=== PATIENT | female | born 1950 | race Caucasian/White ===

== ENCOUNTER 2021-08-10 11:49 | Inpatient (IN) | payer MEDICARE, OTHER ==
[~2021-08-10] VITALS: Ht 160 cm; Wt 72.5 kg
[2021-08-10] MEDS ORDERED: AMIT50TA PO (12:06)
[2021-08-10] MEDS ORDERED: MAG HYDROX/AL HYDROX/SIMETH 30 ML ORAL.SUSP PO PRN (12:45)
[2021-08-10] MEDS ORDERED: MAGNESIUM HYDROXIDE 2,400 MG/30 ML ORAL.SUSP. PO PRN (12:45)
[2021-08-10] MEDS ORDERED: METHYL SALICYLATE/MENTHOL TOPICAL OINTMENT 57GM TUBE. TP PRN (12:45)
[2021-08-10 13:17] LABS: BASO # 0.1 x10^3/uL (0.0-0.2); BASO % 1 % (0-3); EOS # 0.7 x10^3/uL (0.0-0.7); EOS % 6 % (0-3); HEMATOCRIT 36.9 % (36.0-47.0); HEMOGLOBIN 11.8 g/dL (12.0-15.5); LYMPH # 2.3 x10^3/uL (1.0-4.8); LYMPH % 22 % (24-48); MEAN CORPUSCULAR HEMOGLOBIN 30 pg (25-35); MEAN CORPUSCULAR HGB CONC 32 g/dL (31-37); MEAN CORPUSCULAR VOLUME 93 fL (79-100); MONO # 1.6 x10^3/uL (0.0-1.1); MONO % 16 % (0-9); NEUT # 5.8 x10^3uL (1.8-7.7); NEUT % 56 % (31-73); PLATELET COUNT 264 x10^3/uL (140-400); RED BLOOD COUNT 3.98 x10^6/uL (3.50-5.40); RED CELL DISTRIBUTION WIDTH 18.2 % (11.5-14.5); WHITE BLOOD COUNT 10.4 x10^3/uL (4.0-11.0)
[2021-08-10 13:20] VITALS: BP 113/66
[2021-08-10] MEDS ORDERED: CHOL10004 PO (13:22)
[2021-08-10] MEDS ORDERED: MEMA28CA PO (13:22)
[2021-08-10] MEDS ORDERED: PRED-220 PO (13:22)
[2021-08-10] MEDS ORDERED: FAMO-63 PO (13:22)
[2021-08-10] MEDS ORDERED: KETO15CR2 TP (13:22)
[2021-08-10] MEDS ORDERED: VIBE75TA PO (13:22)
[2021-08-10] MEDS ORDERED: DULO60CA7 PO (13:22)
[2021-08-10] MEDS ORDERED: ABAT125S SQ (13:22)
[2021-08-10] MEDS ORDERED: ZOLP5TAB PO (13:22)
[2021-08-10] MEDS ORDERED: PREG150C PO (13:22)
[2021-08-10] MEDS ORDERED: OXYC1TAB15 PO (13:22)
[2021-08-10] MEDS ORDERED: DENO60DI SQ (13:22)
[2021-08-10] MEDS ORDERED: VITA1CAP5 PO (13:22)
[2021-08-10] MEDS ORDERED: LEFL20TA PO (13:22)
[2021-08-10] MEDS ORDERED: QUET25TA5 PO ×2 (13:22)
[2021-08-10] MEDS ORDERED: GALA12TA15 PO (13:22)
[2021-08-10] MEDS ORDERED: CALCIUM (13:39)
[2021-08-10 14:32] LABS: ALBUMIN/GLOBULIN RATIO 0.9 (1.0-1.7); CALCIUM 8.9 mg/dL (8.5-10.1); CREATININE 0.9 mg/dL (0.6-1.0); GFR 61.5; MAGNESIUM 2.1 mg/dL (1.8-2.4); POTASSIUM 3.7 mmol/L (3.5-5.1); TOTAL BILIRUBIN 0.8 mg/dL (0.2-1.0); TOTAL PROTEIN 6.3 g/dL (6.4-8.2)
[2021-08-10 16:21] LABS: CLARITY,URINE CLOUDY; COLOR,URINE YELLOW; GLUCOSE,URINE NEG (NEG); NITRITE,URINE NEG (NEG); UROBILINOGEN,URINE 0.2 mg/dL (0.2 mg/dL); WBC,URINE >40 /HPF (0-4)
[2021-08-10 16:22] LABS: BACTERIA,URINE FEW /HPF (0-FEW); SQUAMOUS EPITHELIAL CELL,UR MOD /LPF
[2021-08-10 17:13] VITALS: BP 113/66
[2021-08-10] MEDS: GALANTAMINE 4 MG TABLET PO SCH (17:35)
[2021-08-10] MEDS: AMITRIPTYLINE HCL 50 MG TABLET PO SCH (20:59)
[2021-08-10] MEDS: ZOLPIDEM 5 MG TABLET. PO PRN (20:59)
[2021-08-10] MEDS: PREGABALIN 75 MG CAPSULE PO SCH (21:00)
[2021-08-10] MEDS ORDERED: QUEtiapine 50 MG TABLET. PO SCH (21:00)
[2021-08-11 03:17] LABS: HEMOGLOBIN A1C 5.7 % (4.8-5.6)
[2021-08-11 04:20] LABS: THYROXINE 6.5 ug/dL (4.5-12.0)
[2021-08-11 06:31] VITALS: BP 139/76
[2021-08-11] MEDS ORDERED: VIBEGRON 75 MG PO SCH (09:00)
[2021-08-11] MEDS: LEFLUNOMIDE 10 MG TABLET PO SCH (09:00)
[2021-08-11] MEDS: KETOCONAZOLE 2% TOPICAL CREAM 30GM TUBE. TP SCH (09:00)
[2021-08-11] MEDS: QUEtiapine 25 MG TABLET. PO SCH ×2 (10:01→21:14)
[2021-08-11] MEDS: GALANTAMINE 4 MG TABLET PO SCH ×2 (10:01→17:41)
[2021-08-11] MEDS: CHOLECALCIFEROL (VITAMIN D3) 1,000 UNIT TABLET PO SCH (10:01)
[2021-08-11] MEDS: DULoxetine HCL 60 MG CAPSULE.DR PO SCH (10:01)
[2021-08-11] MEDS: CALCIUM CARBONATE 500 MG TAB.CHEW PO SCH (10:01)
[2021-08-11] MEDS: VITAMIN B COMPLEX CAPSULE. PO SCH (10:01)
[2021-08-11] MEDS: PREGABALIN 75 MG CAPSULE PO SCH ×3 (10:01→21:12)
[2021-08-11] MEDS: FAMOTIDINE 20 MG TABLET PO SCH (10:02)
[2021-08-11] MEDS: MEMANTINE 10 MG TABLET. PO SCH ×2 (10:02→21:12)
[2021-08-11] MEDS: ASCORBIC ACID 500 MG TABLET PO SCH (10:02)
[2021-08-11] MEDS: predniSONE 5 MG TABLET PO SCH (10:02)
--- NOTE | 2021-08-11 15:17 | HP ---
DATE OF SERVICE: 08/11/2021 ADMIT DATE: 08/10/2021 PSYCHIATRIC ADMISSION HISTORY/EVALUATION This is a late entry, date of service 08/10, covers elements not covered in my initial note, 08/10. I met with the patient on the evening of 08/10 for this evaluation. Previously discussed with Hanna Victoria, ad operations coordinator and nursing staff to gather historical information. IDENTIFYING DATA: The patient is a 71-year-old female who lives at home with her second and has been getting progressively confused and forgetful, has marked physical disabilities due to impaired ambulation and lack of self-care. She has been increasingly combative at home with family with increased confusion, believes her left her for another woman that he is having affairs. She has been paranoid name calling and irritable. She has failed outpatient psychiatric interventions, referred for further stabilization by her primary care physician. I had previously discussed the patient with Hanna Victoria, ad operations coordinator and nursing staff and gathered history, prompting this referral. CHIEF COMPLAINT: "I am okay." HISTORY OF PRESENT ILLNESS: The patient has a history of worsening anger, irritability, mood swings, worsening cognition, memory deficits and paranoia. No clear history of bipolar disorder, suicidal or homicidal ideation. PAST PSYCHIATRIC HISTORY: As above. PAST MEDICAL HISTORY: Positive for hypertension, rheumatoid arthritis, osteoarthritis, fibromyalgia, urinary retention, history of pulmonary embolism, DVT, restless leg syndrome, overactive bladder, chronic cough, status post knee replacement. ACCU-CHEKS: None. ALLERGIES: ANCEF, CELEBREX, ERYTHROMYCIN, LEVAQUIN, PROTONIX, VIOXX, WARFARIN. CODE STATUS: DNR. FAMILY HISTORY: Noncontributory. Ambulates in wheelchair with standby assist. DIET: Mechanical soft. Takes medications with applesauce. CODE STATUS: DNR. FAMILY HISTORY: Noncontributory. SOCIAL HISTORY: The patient lives with her second . No alcohol, drug abuse, physical, sexual, elder abuse history is noted. She is not known to be a perpetrator. REVIEW OF SYSTEMS: Ambulation impaired. She was being assisted by nursing staff to the bathroom. She does have some dysuria and UA has reflex to culture. Review of lab shows some elevation of liver enzymes, AST 66, ALT 64, alkaline phosphatase 156. MENTAL STATUS EXAMINATION: Insight, judgment, recent memory is impaired. Language function intact. Mood and affect is depressed. Attention span is short. No active suicidal or homicidal ideation. LABORATORY DATA: Reviewed. IMPRESSION: Major neurocognitive disorder, early Alzheimer, vascular with delusion; depression; behavioral disturbance; anxiety disorder, unspecified; impulse control disorder, unspecified; status post possible urinary tract infection; some elevation of liver enzymes. Rest as above. PLAN: Admit to Gerops[facility]iatry Unit at [facility]. I will see the patient daily individually from a psychiatric standpoint, medical followup, Dr. La/Dr. Macdonald. Continue the patient on her current psychotropics. Observe baseline. Treat the UTI. Adjust further as clinically indicated. ESTIMATED LENGTH OF STAY: 10-12 days. DISPOSITION PLANS: Her is insistent on taking her home with social service staff. Will discuss other options of placement as well depending on how she does with treatment here. SANDY/FARHEEN DR: Mook TID: [id number]
[2021-08-11 16:10] VITALS: BP 106/66
[2021-08-11] MEDS: AMITRIPTYLINE HCL 50 MG TABLET PO SCH (21:12)
[2021-08-11 21:38] LABS: CHOLESTEROL/HDL RATIO 2.9; THYROID STIM HORMONE (TSH) 1.386 uIU/mL (0.358-3.740)
--- NOTE | 2021-08-11 22:18 | PDOC ---
Exam Note: Angelo Note: Late entry for 08/10/2021. Please also refer to the separate dictated note~for this date of service dictated separately.~Patient seen individually. Discussed the patient with Nursing staff reviewed the chart.~Reviewed interim history and current functioning. Reviewed vital signs,~Labs/ Radiology~and current medic ations noted below. Continue current treatment with the changes noted in the dictated addendum note Assessment: Vital Signs/I&O: Vital Signs Date Time Temp Pulse Resp B/P (MAP) Pulse Ox O2 Delivery O2 Flow Rate FiO2 08/11/21 16:10 97.8 89 17 106/66 (79) 94 08/11/21 06:31 2.0 08/10/21 13:20 Room Air I & O 08/10/21 08/10/21 08/11/21 15:00 23:00 07:00 Intake Total 240 ml Balance 240 ml Current Medications: Meds: Current Medications Medications (Trade) Dose Ordered Sig/Dorinda Route PRN Reason Start Time Stop Time Status Last Admin Dose Admin Acetaminophen (Tylenol) 650 mg PRN Q6HRS PRN PO MILD PAIN / TEMP > 100.3'F 08/10/21 12:45 Multi-Ingredient Ointment (Analgesic [place]) 1 prema PRN QID PRN TP MUSCLE PAIN 08/10/21 12:45 Al Hydroxide/Mg Hydroxide (Mylanta Plus Xs) 15 ml PRN AFTMEALHC PRN PO DYSPEPSIA 08/10/21 12:45 Magnesium Hydroxide (Milk Of Magnesia) 2,400 mg PRN QHS PRN PO CONSTIPATION 08/10/21 12:45 Amitriptyline HCl (Elavil) 50 mg HS PO 08/10/21 21:00 08/11/21 21:12 Vitamin D (Vitamin D3) 1,000 unit DAILY PO 08/11/21 09:00 08/11/21 10:01 Denosumab (Prolia) 60 mg 1X SQ 08/24/21 09:00 Duloxetine HCl (Cymbalta) 60 mg DAILY PO 08/11/21 09:00 08/11/21 10:01 Famotidine (Pepcid) 20 mg DAILY PO 08/11/21 09:00 08/11/21 10:02 Ketoconazole (Nizoral 2% Topical) 1 prema DAILY TP 08/11/21 09:00 Oxycodone/ Acetaminophen (Percocet 5/325) 1 tab PRN Q6HRS PRN PO PAIN 08/10/21 17:00 Prednisone (Prednisone) 5 mg DAILY PO 08/11/21 09:00 08/11/21 10:02 Quetiapine Fumarate (SEROquel) 25 mg DAILY PO 08/11/21 09:00 08/11/21 10:01 Quetiapine Fumarate (SEROquel) 50 mg QHS PO 08/10/21 21:00 08/11/21 17:56 DC 08/10/21 20:59 Zolpidem Tartrate (Ambien) 5 mg PRN QHS PRN PO INSOMNIA 08/10/21 17:00 08/10/21 20:59 Non-Formulary Medication (Abatacept (Orencia)) 125 mg WEEKLY SQ 08/12/21 09:00 Galantamine Hydrobromide (Razadyne) 12 mg BIDAFTMEAL PO 08/10/21 18:00 08/11/21 17:41 Leflunomide (Leflunomide) 20 mg DAILY PO 08/11/21 09:00 Memantine (Namenda) 10 mg BID PO 08/11/21 09:00 08/11/21 21:12 Pregabalin (Lyrica) 150 mg TID PO 08/10/21 21:00 08/11/21 21:12 Non-Formulary Medication (Vibegron (Gemtesa)) 75 mg DAILY PO 08/11/21 09:00 Hold Vitamin B Complex (Vitamin B Complex) 1 cap DAILY PO 08/11/21 09:00 08/11/21 10:01 Calcium Carbonate/ Glycine (Tums) 500 mg DAILY PO 08/11/21 09:00 08/11/21 10:01 Ascorbic Acid (Vitamin C) 500 mg DAILY PO 08/11/21 09:00 08/11/21 10:02 Quetiapine Fumarate (SEROquel) 62.5 mg QHS PO 08/11/21 21:00 08/11/21 21:14 Current Medications Medications (Trade) Dose Ordered Sig/Dorinda Route PRN Reason Start Time Stop Time Status Last Admin Dose Admin Vitamin D (Vitamin D3) 1,000 unit DAILY PO 08/11/21 09:00 08/11/21 10:01 Duloxetine HCl (Cymbalta) 60 mg DAILY PO 08/11/21 09:00 08/11/21 10:01 Famotidine (Pepcid) 20 mg DAILY PO 08/11/21 09:00 08/11/21 10:02 Prednisone (Prednisone) 5 mg DAILY PO 08/11/21 09:00 08/11/21 10:02 Quetiapine Fumarate (SEROquel) 25 mg DAILY PO 08/11/21 09:00 08/11/21 10:01 Memantine (Namenda) 10 mg BID PO 08/11/21 09:00 08/11/21 21:12 Vitamin B Complex (Vitamin B Complex) 1 cap DAILY PO 08/11/21 09:00 08/11/21 10:01 Calcium Carbonate/ Glycine (Tums) 500 mg DAILY PO 08/11/21 09:00 08/11/21 10:01 Ascorbic Acid (Vitamin C) 500 mg DAILY PO 08/11/21 09:00 08/11/21 10:02 Quetiapine Fumarate (SEROquel) 62.5 mg QHS PO 08/11/21 21:00 08/11/21 21:14 I have reviewed the current psychotropics carefully including drug interactions. Risk benefit ratio favors no change other than as noted in my dictated progress note. Diagnosis: Problems: (1) Major neurocognitive disorder (2) Dementia in Alzheimer's disease with delusions (3) Dementia in Alzheimer's disease with depression (4) Dementia in Alzheimer's disease with early onset with behavioral disturbance (5) Dementia, vascular, with delusions (6) Dementia, vascular, with depression (7) Impulse control disorder, unspecified (8) Anxiety disorder, unspecified MEL DONOVAN MD Aug 11, 2021 22:17
--- NOTE | 2021-08-11 22:18 | PDOC ---
Exam Note: Angelo Note: Please also refer to the separate dictated note~for this date of service dictated separately.~Patient seen individually. Discussed the patient with Nursing staff reviewed the chart.~Reviewed interim history and current functioning. Reviewed vital signs,~Labs/ Radiology~and current medications noted below. Continue current treatment with the changes noted in the dictated addendum note Assessment: Vital Signs/I&O: Vital Signs Date Time Temp Pulse Resp B/P (MAP) Pulse Ox O2 Delivery O2 Flow Rate FiO2 08/11/21 16:10 97.8 89 17 106/66 (79) 94 08/11/21 06:31 2.0 08/10/21 13:20 Room Air I & O 08/10/21 08/10/21 08/11/21 15:00 23:00 07:00 Intake Total 240 ml Balance 240 ml Current Medications: Meds: Current Medications Medications (Trade) Dose Ordered Sig/Dorinda Route PRN Reason Start Time Stop Time Status Last Admin Dose Admin Acetaminophen (Tylenol) 650 mg PRN Q6HRS PRN PO MILD PAIN / TEMP > 100.3'F 08/10/21 12:45 Multi-Ingredient Ointment (Analgesic [place]) 1 prema PRN QID PRN TP MUSCLE PAIN 08/10/21 12:45 Al Hydroxide/Mg Hydroxide (Mylanta Plus Xs) 15 ml PRN AFTMEALHC PRN PO DYSPEPSIA 08/10/21 12:45 Magnesium Hydroxide (Milk Of Magnesia) 2,400 mg PRN QHS PRN PO CONSTIPATION 08/10/21 12:45 Amitriptyline HCl (Elavil) 50 mg HS PO 08/10/21 21:00 08/11/21 21:12 Vitamin D (Vitamin D3) 1,000 unit DAILY PO 08/11/21 09:00 08/11/21 10:01 Denosumab (Prolia) 60 mg 1X SQ 08/24/21 09:00 Duloxetine HCl (Cymbalta) 60 mg DAILY PO 08/11/21 09:00 08/11/21 10:01 Famotidine (Pepcid) 20 mg DAILY PO 08/11/21 09:00 08/11/21 10:02 Ketoconazole (Nizoral 2% Topical) 1 prema DAILY TP 08/11/21 09:00 Oxycodone/ Acetaminophen (Percocet 5/325) 1 tab PRN Q6HRS PRN PO PAIN 08/10/21 17:00 Prednisone (Prednisone) 5 mg DAILY PO 08/11/21 09:00 08/11/21 10:02 Quetiapine Fumarate (SEROquel) 25 mg DAILY PO 08/11/21 09:00 08/11/21 10:01 Quetiapine Fumarate (SEROquel) 50 mg QHS PO 08/10/21 21:00 08/11/21 17:56 DC 08/10/21 20:59 Zolpidem Tartrate (Ambien) 5 mg PRN QHS PRN PO INSOMNIA 08/10/21 17:00 08/10/21 20:59 Non-Formulary Medication (Abatacept (Orencia)) 125 mg WEEKLY SQ 08/12/21 09:00 Galantamine Hydrobromide (Razadyne) 12 mg BIDAFTMEAL PO 08/10/21 18:00 08/11/21 17:41 Leflunomide (Leflunomide) 20 mg DAILY PO 08/11/21 09:00 Memantine (Namenda) 10 mg BID PO 08/11/21 09:00 08/11/21 21:12 Pregabalin (Lyrica) 150 mg TID PO 08/10/21 21:00 08/11/21 21:12 Non-Formulary Medication (Vibegron (Gemtesa)) 75 mg DAILY PO 08/11/21 09:00 Hold Vitamin B Complex (Vitamin B Complex) 1 cap DAILY PO 08/11/21 09:00 08/11/21 10:01 Calcium Carbonate/ Glycine (Tums) 500 mg DAILY PO 08/11/21 09:00 08/11/21 10:01 Ascorbic Acid (Vitamin C) 500 mg DAILY PO 08/11/21 09:00 08/11/21 10:02 Quetiapine Fumarate (SEROquel) 62.5 mg QHS PO 08/11/21 21:00 08/11/21 21:14 Current Medications Medications (Trade) Dose Ordered Sig/Dorinda Route PRN Reason Start Time Stop Time Status Last Admin Dose Admin Vitamin D (Vitamin D3) 1,000 unit DAILY PO 08/11/21 09:00 08/11/21 10:01 Duloxetine HCl (Cymbalta) 60 mg DAILY PO 08/11/21 09:00 08/11/21 10:01 Famotidine (Pepcid) 20 mg DAILY PO 08/11/21 09:00 08/11/21 10:02 Prednisone (Prednisone) 5 mg DAILY PO 08/11/21 09:00 08/11/21 10:02 Quetiapine Fumarate (SEROquel) 25 mg DAILY PO 08/11/21 09:00 08/11/21 10:01 Memantine (Namenda) 10 mg BID PO 08/11/21 09:00 08/11/21 21:12 Vitamin B Complex (Vitamin B Complex) 1 cap DAILY PO 08/11/21 09:00 08/11/21 10:01 Calcium Carbonate/ Glycine (Tums) 500 mg DAILY PO 08/11/21 09:00 08/11/21 10:01 Ascorbic Acid (Vitamin C) 500 mg DAILY PO 08/11/21 09:00 08/11/21 10:02 Quetiapine Fumarate (SEROquel) 62.5 mg QHS PO 08/11/21 21:00 08/11/21 21:14 I have reviewed the current psychotropics carefully including drug interactions. Risk benefit ratio favors no change other than as noted in my dictated progress note. 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
--- NOTE | 2021-08-12 05:12 | CONS ---
DATE OF CONSULTATION: 08/11/2021 ATTENDING PHYSICIAN: Dr. Donovan. We are asked to see the patient for medical consultation. HISTORY OF PRESENT ILLNESS: The patient is a 71-year-old female who is from [place], [place]. Her family noted she has been getting more combative, increased confusion and paranoid, very irritable and name-calling. She was sent here for adjustment of her medication. She has underlying dementia, chronic. PAST MEDICAL HISTORY: Significant for essential hypertension, osteoarthritis, chronic urinary retention, history of DVTs in the past and pulmonary embolus. I do not see that she is on current anticoagulation. ALLERGIES: SHE HAS MULTIPLE ALLERGIES INCLUDING CEFAZOLIN, CELEBREX, DEXTROMETHORPHAN, ERYTHROMYCIN BASE, LEVOFLOXACIN, PROTONIX, PHENYLEPHRINE, AND WARFARIN. EXACT REACTION IS UNCLEAR. CURRENT MEDICATIONS: Include amitriptyline 50 mg at bedtime, Orencia, Prolia, Cymbalta, Pepcid, galantamine, ketaconazole, Arava, Namenda, oxycodone p.r.n., prednisone, Lyrica, Seroquel, Gemtesa, vitamin B, vitamin D, zolpidem. SOCIAL HISTORY: She is a nonsmoker, nondrinker. FAMILY HISTORY: Unobtainable. REVIEW OF SYSTEMS: Unobtainable due to the patient's confusion. PHYSICAL EXAMINATION: GENERAL: When I saw her, this is a pleasant, confused female. She is in a wheelchair. I did not assess her gait. VITAL SIGNS: Initial vital signs show blood pressure 139/76 mmHg. Her oxygen saturation 95% on 2 liters. She is afebrile, pulse is 90 and regular. HEENT: Head is without trauma. Pupils are reactive. Sclerae are nonicteric. The oropharynx is clear. NECK: Supple. LUNGS: Good breath sounds. CARDIOVASCULAR: Showed regular heart tones. ABDOMEN: Soft. No guarding. EXTREMITIES: Show no cyanosis. NEUROLOGIC: Profoundly confused and disoriented. PERTINENT LABORATORY STUDIES: Hemoglobin on admission is 11.8 g/dL with a white count of 10,400. Her chemistry panel showed normal BUN, creatinine, electrolytes. Creatinine 0.9 mg/dL. Nonfasting blood sugar 104. Transaminases all within normal range. Thyroid function was normal. ASSESSMENT: 1. This 71-year-old female has profound dementia with behavioral issues. She also has paranoia. 2. Psychosis features. 3. She is stable from a medical standpoint. RECOMMENDATIONS: 1. I have reviewed her medication. They should be continued the same dosage. 2. She is stable from a medical standpoint. 3. We should gladly follow along during her inpatient course. Thank you again for asking me to see this patient for medical consultation and management. JACKIE/NANI/JACQUELINE DR: Betsy TID: [id number] CC: MEL DONOVAN MD
[2021-08-12] MEDS: oxyCODONE/APAP 5/325 1 TAB TABLET PO PRN ×2 (05:53→20:04)
[2021-08-12 06:18] VITALS: BP 107/65
[2021-08-12] MEDS: FAMOTIDINE 20 MG TABLET PO SCH (08:11)
[2021-08-12] MEDS: DULoxetine HCL 60 MG CAPSULE.DR PO SCH (08:11)
[2021-08-12] MEDS: CHOLECALCIFEROL (VITAMIN D3) 1,000 UNIT TABLET PO SCH (08:11)
[2021-08-12] MEDS: GALANTAMINE 4 MG TABLET PO SCH ×2 (08:11→17:05)
[2021-08-12] MEDS: PREGABALIN 75 MG CAPSULE PO SCH ×3 (08:12→20:03)
[2021-08-12] MEDS: MEMANTINE 10 MG TABLET. PO SCH ×2 (08:12→20:03)
[2021-08-12] MEDS: CALCIUM CARBONATE 500 MG TAB.CHEW PO SCH (08:12)
[2021-08-12] MEDS: VITAMIN B COMPLEX CAPSULE. PO SCH (08:12)
[2021-08-12] MEDS: LEFLUNOMIDE 10 MG TABLET PO SCH (08:13)
[2021-08-12] MEDS: ASCORBIC ACID 500 MG TABLET PO SCH (08:13)
[2021-08-12] MEDS: QUEtiapine 25 MG TABLET. PO SCH ×2 (08:13→19:58)
[2021-08-12] MEDS: predniSONE 5 MG TABLET PO SCH (08:13)
[2021-08-12] MEDS: KETOCONAZOLE 2% TOPICAL CREAM 30GM TUBE. TP SCH (08:30)
--- NOTE | 2021-08-12 10:22 | RAD ---
CT Head W/O Contrast: History: Reason: BASELINE- [facility] PATIENT / Spl. Instructions: / History: Comparison: none Axial images were obtained without contrast. There is moderate to marked diffuse atrophy. There is no mass effect, extraaxial fluid collections o r hydrocephalus. There is no focal loss of aiken-white matter distinction to suggest acute ischemia, i.e. stroke. Impression: Diffuse cerebral and cerebellar atrophy. No acute findings. End of impression PQRS Compliance Statement: One or more of the following individualized dose reduction techniques were utilized for this examinat ion: 1. Automated exposure control 2. Adjustment of the mA and/or kV according to patient size 3. Use of iterative reconstruction technique Electronically signed by: Joshua Mckinnon III, MD (08/12/2021 10:20 AM) [facility]
[2021-08-12] MEDS: ABATACEPT 125 MG SQ SCH (10:48)
[2021-08-12 15:57] VITALS: BP 96/57
[2021-08-12] MEDS: AMITRIPTYLINE HCL 50 MG TABLET PO SCH (20:03)
--- NOTE | 2021-08-12 22:02 | PDOC ---
Exam Note: Angelo Note: Please also refer to the separate dictated note~for this date of service dictated separately.~Patient seen individually. Discussed the patient with Nursing staff reviewed the chart.~Reviewed interim history and current functioning. Reviewed vital signs,~Labs/ Radiology~and current medications noted below. Continue current treatment with the changes noted in the dictated addendum note Assessment: Vital Signs/I&O: Vital Signs Date Time Temp Pulse Resp B/P (MAP) Pulse Ox O2 Delivery O2 Flow Rate FiO2 08/12/21 20:34 92 08/12/21 15:57 97.9 82 18 96/57 (70) 08/11/21 06:31 2.0 08/10/21 13:20 Room Air I & O 08/11/21 08/11/21 08/12/21 14:59 22:59 06:59 Intake Total 600 ml Balance 600 ml Current Medications: Meds: Current Medications Medications (Trade) Dose Ordered Sig/Dorinda Route PRN Reason Start Time Stop Time Status Last Admin Dose Admin Acetaminophen (Tylenol) 650 mg PRN Q6HRS PRN PO MILD PAIN / TEMP > 100.3'F 08/10/21 12:45 Multi-Ingredient Ointment (Analgesic [place]) 1 prema PRN QID PRN TP MUSCLE PAIN 08/10/21 12:45 Al Hydroxide/Mg Hydroxide (Mylanta Plus Xs) 15 ml PRN AFTMEALHC PRN PO DYSPEPSIA 08/10/21 12:45 Magnesium Hydroxide (Milk Of Magnesia) 2,400 mg PRN QHS PRN PO CONSTIPATION 08/10/21 12:45 Amitriptyline HCl (Elavil) 50 mg HS PO 08/10/21 21:00 08/12/21 20:03 Vitamin D (Vitamin D3) 1,000 unit DAILY PO 08/11/21 09:00 08/12/21 08:11 Denosumab (Prolia) 60 mg 1X SQ 08/24/21 09:00 Duloxetine HCl (Cymbalta) 60 mg DAILY PO 08/11/21 09:00 08/12/21 08:11 Famotidine (Pepcid) 20 mg DAILY PO 08/11/21 09:00 08/12/21 08:11 Ketoconazole (Nizoral 2% Topical) 1 prema DAILY TP 08/11/21 09:00 Oxycodone/ Acetaminophen (Percocet 5/325) 1 tab PRN Q6HRS PRN PO PAIN 08/10/21 17:00 08/12/21 20:04 Prednisone (Prednisone) 5 mg DAILY PO 08/11/21 09:00 08/12/21 08:13 Quetiapine Fumarate (SEROquel) 25 mg DAILY PO 08/11/21 09:00 08/12/21 08:13 Quetiapine Fumarate (SEROquel) 50 mg QHS PO 08/10/21 21:00 08/11/21 17:56 DC 08/10/21 20:59 Zolpidem Tartrate (Ambien) 5 mg PRN QHS PRN PO INSOMNIA 08/10/21 17:00 08/10/21 20:59 Non-Formulary Medication (Abatacept (Orencia)) 125 mg WEEKLY SQ 08/12/21 09:00 08/12/21 10:48 Galantamine Hydrobromide (Razadyne) 12 mg BIDAFTMEAL PO 08/10/21 18:00 08/12/21 17:05 Leflunomide (Leflunomide) 20 mg DAILY PO 08/11/21 09:00 08/12/21 08:13 Memantine (Namenda) 10 mg BID PO 08/11/21 09:00 08/12/21 20:03 Pregabalin (Lyrica) 150 mg TID PO 08/10/21 21:00 08/12/21 20:03 Non-Formulary Medication (Vibegron (Gemtesa)) 75 mg DAILY PO 08/11/21 09:00 Hold Vitamin B Complex (Vitamin B Complex) 1 cap DAILY PO 08/11/21 09:00 08/12/21 08:12 Calcium Carbonate/ Glycine (Tums) 500 mg DAILY PO 08/11/21 09:00 08/12/21 08:12 Ascorbic Acid (Vitamin C) 500 mg DAILY PO 08/11/21 09:00 08/12/21 08:13 Quetiapine Fumarate (SEROquel) 62.5 mg QHS PO 08/11/21 21:00 08/12/21 19:58 Current Medications Medications (Trade) Dose Ordered Sig/Dorinda Route PRN Reason Start Time Stop Time Status Last Admin Dose Admin Non-Formulary Medication (Abatacept (Orencia)) 125 mg WEEKLY SQ 08/12/21 09:00 08/12/21 10:48 I have reviewed the current psychotropics carefully including drug interactions. Risk benefit ratio favors no change other than as noted in my dictated progress note. Diagnosis: Problems: (1) Impulse control disorder, unspecified (2) Anxiety disorder, unspecified (3) Dementia, vascular, with depression (4) Dementia, vascular, with delusions (5) Dementia in Alzheimer's disease with depression (6) Dementia in Alzheimer's disease with delusions (7) Major neurocognitive disorder (8) Dementia in Alzheimer's disease with early onset with behavioral disturbance MEL DONOVAN MD Aug 12, 2021 22:02
--- NOTE | 2021-08-12 23:18 | PDOC ---
Exam Note: Angelo Note: This note is a late entry for 08/11/2021 covers elements not covered in my initial note. Subjective: The patient was reviewed at treatment team meeting individually in the morning on 08/11/2021 with July Mane and Marcela Baptiste (child welfare social worker), Nevaeh, activity therapy, and Elza DIEHL, discussed and reviewed the chart. The patient slept 7-1/2 hours previous night. Reviewed her history, diagnoses, progress at length. She has had a poor appetite. UA has reflex to culture, has a probable UTI. At admission she had low-grade fever. O2 sats 86%, pulse was 130. Liver enzymes slightly elevated. AST 66, ALT 64, alkaline phosphatase 156. She is irritable at times, urinates in her bed, often screaming and crying but this is due to arthritic pain. She is a maximum assist for ADLs. Further history reviewed, the family indicates progressive dementia for the past 3 years. Her second is caring for her in the home. She is no cooperative for her CT head today. We will attempt tomorrow. I met with her in her room. She has not had much of her supper and I assisted her with this. Review of Systems: Ambulation impaired. No CV, , pulmonary, eye, ENT system symptoms on review. Reliability poor. Mental Status Exam: She is oriented to herself. She was unable to recognize most items on her dinner tray when I questioned her pointedly. She was unable to recognize even broccoli and felt it was beans and was not able to recognize the au-gratin potatoes, quite confused. Insight and judgment, recent and remote memory, attention and concentration, fund of knowledge is poor consistent with her diagnoses. She is somewhat withdrawn, poor eye contact. Reviewed psychomotor activity. Laboratory Data: Reviewed. Impression: Major neurocognitive disorder, Alzheimer, vascular with delusion, depression, behavioral disturbance. Anxiety disorder unspecified. Impulse control disorder unspecified. UTI. Plan: Continue current psychotropics. Reviewed drug interactions, risk-benefit ratio. Increase h.s. Seroquel from 50 mg to 62.5 mg. Maintain rest unchanged. Assessment: Vital Signs/I&O: Vital Signs Date Time Temp Pulse Resp B/P (MAP) Pulse Ox O2 Delivery O2 Flow Rate FiO2 4/2/22 20:34 92 08/12/21 15:57 97.9 82 18 96/57 (70) 08/11/21 06:31 2.0 08/10/21 13:20 Room Air I & O 08/11/21 08/11/21 08/12/21 15:00 23:00 07:00 Intake Total 600 ml Balance 600 ml Current Medications: Meds: Current Medications Medications (Trade) Dose Ordered Sig/Dorinda Route PRN Reason Start Time Stop Time Status Last Admin Dose Admin Non-Formulary Medication (Abatacept (Orencia)) 125 mg WEEKLY SQ 08/12/21 09:00 08/12/21 10:48 I have reviewed the current psychotropics carefully including drug interactions. Risk benefit ratio favors no change other than as noted in my dictated progress note. Diagnosis: Problems: (1) UTI (urinary tract infection) (2) Impulse control disorder, unspecified (3) Anxiety disorder, unspecified (4) Dementia, vascular, with depression (5) Dementia, vascular, with delusions (6) Dementia in Alzheimer's disease with depression (7) Dementia in Alzheimer's disease with delusions (8) Major neurocognitive disorder (9) Dementia in Alzheimer's disease with early onset with behavioral disturbance MEL DONOVAN MD Aug 12, 2021 23:18
[2021-08-13] MEDS: oxyCODONE/APAP 5/325 1 TAB TABLET PO PRN ×2 (06:35→20:11)
[2021-08-13 06:47] VITALS: BP 122/75
[2021-08-13] MEDS: VITAMIN B COMPLEX CAPSULE. PO SCH (08:31)
[2021-08-13] MEDS: CHOLECALCIFEROL (VITAMIN D3) 1,000 UNIT TABLET PO SCH (08:31)
[2021-08-13] MEDS: ASCORBIC ACID 500 MG TABLET PO SCH (08:31)
[2021-08-13] MEDS: FAMOTIDINE 20 MG TABLET PO SCH (08:31)
[2021-08-13] MEDS: predniSONE 5 MG TABLET PO SCH (08:31)
[2021-08-13] MEDS: GALANTAMINE 4 MG TABLET PO SCH ×2 (08:32→17:31)
[2021-08-13] MEDS: LEFLUNOMIDE 10 MG TABLET PO SCH (08:32)
[2021-08-13] MEDS: CALCIUM CARBONATE 500 MG TAB.CHEW PO SCH (08:32)
[2021-08-13] MEDS: DULoxetine HCL 60 MG CAPSULE.DR PO SCH (08:32)
[2021-08-13] MEDS: QUEtiapine 25 MG TABLET. PO SCH ×2 (08:32→20:09)
[2021-08-13] MEDS: MEMANTINE 10 MG TABLET. PO SCH ×2 (08:32→20:09)
[2021-08-13] MEDS: PREGABALIN 75 MG CAPSULE PO SCH ×3 (08:32→20:10)
[2021-08-13] MEDS: KETOCONAZOLE 2% TOPICAL CREAM 30GM TUBE. TP SCH (08:33)
[2021-08-13 15:58] VITALS: BP 118/76
[2021-08-13] MEDS: AMITRIPTYLINE HCL 50 MG TABLET PO SCH (20:10)
--- NOTE | 2021-08-13 22:03 | PDOC ---
Exam Note: Angelo Note: Please also refer to the separate dictated note~for this date of service dictated separately.~Patient seen individually. Discussed the patient with Nursing staff reviewed the chart.~Reviewed interim history and current functioning. Reviewed vital signs,~Labs/ Radiology~and current medications noted below. Continue current treatment with the changes noted in the dictated addendum note Assessment: Vital Signs/I&O: Vital Signs Date Time Temp Pulse Resp B/P (MAP) Pulse Ox O2 Delivery O2 Flow Rate FiO2 08/13/21 20:41 20 08/13/21 15:58 97.1 87 20 118/76 (90) 0.0 08/13/21 06:47 Room Air I & O 08/12/21 08/12/21 08/13/21 15:00 23:00 07:00 Intake Total 360 ml 240 ml Balance 360 ml 240 ml Current Medications: Meds: Current Medications Medications (Trade) Dose Ordered Sig/Dorinda Route PRN Reason Start Time Stop Time Status Last Admin Dose Admin Acetaminophen (Tylenol) 650 mg PRN Q6HRS PRN PO MILD PAIN / TEMP > 100.3'F 08/10/21 12:45 Multi-Ingredient Ointment (Analgesic [place]) 1 prema PRN QID PRN TP MUSCLE PAIN 08/10/21 12:45 Al Hydroxide/Mg Hydroxide (Mylanta Plus Xs) 15 ml PRN AFTMEALHC PRN PO DYSPEPSIA 08/10/21 12:45 Magnesium Hydroxide (Milk Of Magnesia) 2,400 mg PRN QHS PRN PO CONSTIPATION 08/10/21 12:45 Amitriptyline HCl (Elavil) 50 mg HS PO 08/10/21 21:00 08/13/21 20:10 Vitamin D (Vitamin D3) 1,000 unit DAILY PO 08/11/21 09:00 08/13/21 08:31 Denosumab (Prolia) 60 mg 1X SQ 08/24/21 09:00 Duloxetine HCl (Cymbalta) 60 mg DAILY PO 08/11/21 09:00 08/13/21 08:32 Famotidine (Pepcid) 20 mg DAILY PO 08/11/21 09:00 08/13/21 08:31 Ketoconazole (Nizoral 2% Topical) 1 prema DAILY TP 08/11/21 09:00 08/13/21 08:33 Oxycodone/ Acetaminophen (Percocet 5/325) 1 tab PRN Q6HRS PRN PO MOD-SEV PAIN 08/10/21 17:00 08/13/21 20:11 Prednisone (Prednisone) 5 mg DAILY PO 08/11/21 09:00 08/13/21 08:31 Quetiapine Fumarate (SEROquel) 25 mg DAILY PO 08/11/21 09:00 08/13/21 08:32 Quetiapine Fumarate (SEROquel) 50 mg QHS PO 08/10/21 21:00 08/11/21 17:56 DC 08/10/21 20:59 Zolpidem Tartrate (Ambien) 5 mg PRN QHS PRN PO INSOMNIA 08/10/21 17:00 08/10/21 20:59 Non-Formulary Medication (Abatacept (Orencia)) 125 mg WEEKLY SQ 08/12/21 09:00 08/12/21 10:48 Galantamine Hydrobromide (Razadyne) 12 mg BIDAFTMEAL PO 08/10/21 18:00 08/13/21 17:31 Leflunomide (Leflunomide) 20 mg DAILY PO 08/11/21 09:00 08/13/21 08:32 Memantine (Namenda) 10 mg BID PO 08/11/21 09:00 08/13/21 20:09 Pregabalin (Lyrica) 150 mg TID PO 08/10/21 21:00 08/13/21 20:10 Non-Formulary Medication (Vibegron (Gemtesa)) 75 mg DAILY PO 08/11/21 09:00 Hold Vitamin B Complex (Vitamin B Complex) 1 cap DAILY PO 08/11/21 09:00 08/13/21 08:31 Calcium Carbonate/ Glycine (Tums) 500 mg DAILY PO 08/11/21 09:00 08/13/21 08:32 Ascorbic Acid (Vitamin C) 500 mg DAILY PO 08/11/21 09:00 08/13/21 08:31 Quetiapine Fumarate (SEROquel) 62.5 mg QHS PO 08/11/21 21:00 08/13/21 20:09 I have reviewed the current psychotropics carefully including drug interactions. Risk benefit ratio favors no change other than as noted in my dictated progress note. Diagnosis: Problems: (1) Impulse control disorder, unspecified (2) Anxiety disorder, unspecified (3) Dementia, vascular, with depression (4) Dementia, vascular, with delusions (5) Dementia in Alzheimer's disease with depression (6) Dementia in Alzheimer's disease with delusions (7) Major neurocognitive disorder (8) Dementia in Alzheimer's disease with early onset with behavioral disturbance MEL DONOVAN MD Aug 13, 2021 22:03
[2021-08-14] MEDS: ACETAMINOPHEN 325 MG TABLET PO PRN (05:57)
[2021-08-14 06:04] VITALS: BP 157/83
[2021-08-14] MEDS: FAMOTIDINE 20 MG TABLET PO SCH (08:25)
[2021-08-14] MEDS: VITAMIN B COMPLEX CAPSULE. PO SCH (08:25)
[2021-08-14] MEDS: DULoxetine HCL 60 MG CAPSULE.DR PO SCH (08:25)
[2021-08-14] MEDS: CHOLECALCIFEROL (VITAMIN D3) 1,000 UNIT TABLET PO SCH (08:25)
[2021-08-14] MEDS: LEFLUNOMIDE 10 MG TABLET PO SCH (08:26)
[2021-08-14] MEDS: MEMANTINE 10 MG TABLET. PO SCH ×2 (08:26→20:26)
[2021-08-14] MEDS: QUEtiapine 25 MG TABLET. PO SCH ×2 (08:26→20:26)
[2021-08-14] MEDS: predniSONE 5 MG TABLET PO SCH (08:26)
[2021-08-14] MEDS: ASCORBIC ACID 500 MG TABLET PO SCH (08:26)
[2021-08-14] MEDS: PREGABALIN 75 MG CAPSULE PO SCH ×3 (08:26→20:26)
[2021-08-14] MEDS: GALANTAMINE 4 MG TABLET PO SCH ×2 (08:26→17:59)
[2021-08-14] MEDS: CALCIUM CARBONATE 500 MG TAB.CHEW PO SCH (08:27)
[2021-08-14] MEDS: KETOCONAZOLE 2% TOPICAL CREAM 30GM TUBE. TP SCH (08:27)
--- NOTE | 2021-08-14 08:32 | RAD ---
XR CHEST 1V History: Reason: wheezing, SOA / Spl. Instructions: / History: Comparison: None. Findings: Low lung volumes. Elevation the right hemidiaphragm. Mild patchy bibasilar opacities. No pleural effu jaskaran. No pneumothorax. Impression: 1. Low lung volumes and mild patchy bibasilar opacities, may represent atelectasis or developing con solidations. Electronically signed by: Harish Romero DO (08/14/2021 8:29 AM) [id number]
--- NOTE | 2021-08-14 08:55 | PDOC ---
Exam Note: Angelo Note: This note is a late entry for 08/12/2021 covers elements not covered in my initial note. Subjective: The patient was seen individually on 08/12/2021, discussed and reviewed the chart with Murali DIEHL. The patient slept [address] head shows some chronic microvascular changes. No acute changes. I met with her in her room. She does complain of pain. She has not been combative. She did have a telephone call with her . UA is contaminated. We will repeat it. She is unable to settle down enough to have her meals and we will change her diet to finger foods. She takes her meds in pudding. Review of Systems: Ambulation impaired. No CV, , pulmonary, eye, ENT system symptoms on review. Reliability poor. Mental Status Exam: She is oriented to herself. Insight and judgment, recent and remote memory, attention and concentration, fund of knowledge is poor consistent with her diagnoses. Laboratory Data: Reviewed. Impression: Major neurocognitive disorder, Alzheimer, vascular with delusion, depression, behavioral disturbance. Anxiety disorder unspecified. Impulse control disorder unspecified. UTI. Plan: We have increased h.s. Seroquel to 62.5 mg. Continue rest psychotropics unchanged. Reviewed drug interactions, risk-benefit ratio. If psychotic symptoms are prominent, we may consider changing Seroquel to Risperdal. Assessment: Vital Signs/I&O: Vital Signs Date Time Temp Pulse Resp B/P (MAP) Pulse Ox O2 Delivery O2 Flow Rate FiO2 08/14/21 06:04 96.9 75 20 157/83 (107) 91 08/13/21 15:58 0.0 08/13/21 06:47 Room Air I & O 08/13/21 08/13/21 08/14/21 15:00 23:00 07:00 Intake Total 240 ml 240 ml Balance 240 ml 240 ml Current Medications: I have reviewed the current psychotropics carefully including drug interactions. Risk benefit ratio favors no change other than as noted in my dictated progress note. Diagnosis: Problems: (1) Impulse control disorder, unspecified (2) Anxiety disorder, unspecified (3) Dementia, vascular, with depression (4) Dementia, vascular, with delusions (5) Dementia in Alzheimer's disease with depression (6) Dementia in Alzheimer's disease with delusions (7) Major neurocognitive disorder (8) Dementia in Alzheimer's disease with early onset with behavioral disturbance MEL DONOVAN MD Aug 14, 2021 08:55
[2021-08-14 15:36] VITALS: BP 149/94
[2021-08-14 16:04] LABS: CLARITY,URINE HAZY; COLOR,URINE YELLOW; GLUCOSE,URINE NEG (NEG); UROBILINOGEN,URINE 0.2 mg/dL (0.2 mg/dL)
[2021-08-14 16:05] LABS: BACTERIA,URINE MOD /HPF (0-FEW); NITRITE,URINE NEG (NEG); RBC,URINE RARE /HPF (0-2); SQUAMOUS EPITHELIAL CELL,UR FEW /LPF; WBC,URINE TNTC /HPF (0-4)
[2021-08-14] MEDS: AMITRIPTYLINE HCL 50 MG TABLET PO SCH (20:26)
--- NOTE | 2021-08-14 21:50 | PDOC ---
Exam Note: Angelo Note: Please also refer to the separate dictated note~for this date of service dictated separately.~Patient seen individually. Discussed the patient with Nursing staff reviewed the chart.~Reviewed interim history and current functioning. Reviewed vital signs,~Labs/ Radiology~and current medications noted below. Continue current treatment with the changes noted in the dictated addendum note Assessment: Vital Signs/I&O: Vital Signs Date Time Temp Pulse Resp B/P (MAP) Pulse Ox O2 Delivery O2 Flow Rate FiO2 08/14/21 15:36 98.0 91 18 149/94 (112) 91 08/13/21 15:58 0.0 08/13/21 06:47 Room Air I & O 08/13/21 08/13/21 08/14/21 15:00 23:00 07:00 Intake Total 240 ml 240 ml Balance 240 ml 240 ml Labs: Laboratory Tests Test 08/14/21 15:00 Urine Collection Type Clean catch Urine Color Yellow Urine Clarity Hazy Urine pH 5.5 Urine Specific [place] 1.015 Urine Protein Neg (NEG-TRACE) Urine Glucose (UA) Neg mg/dL (NEG) Urine Ketones (Stick) Neg mg/dL (NEG) Urine Blood Trace (NEG) Urine Nitrite Neg (NEG) Urine Bilirubin Neg (NEG) Urine Urobilinogen Dipstick 0.2 mg/dL (0.2 mg/dL) Urine Leukocyte Esterase Large (NEG) Urine RBC Rare /HPF (0-2) Urine WBC Tntc /HPF (0-4) Urine Squamous Epithelial Cells Few /LPF Urine Bacteria Mod /HPF (0-FEW) Current Medications: Meds: Laboratory Tests Test 08/14/21 15:00 Urine Collection Type Clean catch Urine Color Yellow Urine Clarity Hazy Urine pH 5.5 Urine Specific [place] 1.015 Urine Protein Neg Urine Glucose (UA) Neg mg/dL Urine Ketones (Stick) Neg mg/dL Urine Blood Trace Urine Nitrite Neg Urine Bilirubin Neg Urine Urobilinogen Dipstick 0.2 mg/dL Urine Leukocyte Esterase Large Urine RBC Rare /HPF Urine WBC Tntc /HPF Urine Squamous Epithelial Cells Few /LPF Urine Bacteria Mod /HPF Current Medications Medications (Trade) Dose Ordered Sig/Dorinda Route PRN Reason Start Time Stop Time Status Last Admin Dose Admin Acetaminophen (Tylenol) 650 mg PRN Q6HRS PRN PO MILD PAIN / TEMP > 100.3'F 08/10/21 12:45 08/14/21 05:57 Multi-Ingredient Ointment (Analgesic [place]) 1 prema PRN QID PRN TP MUSCLE PAIN 08/10/21 12:45 Al Hydroxide/Mg Hydroxide (Mylanta Plus Xs) 15 ml PRN AFTMEALHC PRN PO DYSPEPSIA 08/10/21 12:45 Magnesium Hydroxide (Milk Of Magnesia) 2,400 mg PRN QHS PRN PO CONSTIPATION 08/10/21 12:45 Amitriptyline HCl (Elavil) 50 mg HS PO 08/10/21 21:00 08/14/21 20:26 Vitamin D (Vitamin D3) 1,000 unit DAILY PO 08/11/21 09:00 08/14/21 08:25 Denosumab (Prolia) 60 mg 1X SQ 08/24/21 09:00 Duloxetine HCl (Cymbalta) 60 mg DAILY PO 08/11/21 09:00 08/14/21 08:25 Famotidine (Pepcid) 20 mg DAILY PO 08/11/21 09:00 08/14/21 08:25 Ketoconazole (Nizoral 2% Topical) 1 prema DAILY TP 08/11/21 09:00 08/14/21 08:27 Oxycodone/ Acetaminophen (Percocet 5/325) 1 tab PRN Q6HRS PRN PO MOD-SEV PAIN 08/10/21 17:00 08/13/21 20:11 Prednisone (Prednisone) 5 mg DAILY PO 08/11/21 09:00 08/14/21 08:26 Quetiapine Fumarate (SEROquel) 25 mg DAILY PO 08/11/21 09:00 08/14/21 08:26 Quetiapine Fumarate (SEROquel) 50 mg QHS PO 08/10/21 21:00 08/11/21 17:56 DC 08/10/21 20:59 Zolpidem Tartrate (Ambien) 5 mg PRN QHS PRN PO INSOMNIA 08/10/21 17:00 08/10/21 20:59 Non-Formulary Medication (Abatacept (Orencia)) 125 mg WEEKLY SQ 08/12/21 09:00 08/12/21 10:48 Galantamine Hydrobromide (Razadyne) 12 mg BIDAFTMEAL PO 08/10/21 18:00 08/14/21 17:59 Leflunomide (Leflunomide) 20 mg DAILY PO 08/11/21 09:00 08/14/21 08:26 Memantine (Namenda) 10 mg BID PO 08/11/21 09:00 08/14/21 20:26 Pregabalin (Lyrica) 150 mg TID PO 08/10/21 21:00 08/14/21 20:26 Non-Formulary Medication (Vibegron (Gemtesa)) 75 mg DAILY PO 08/11/21 09:00 Hold Vitamin B Complex (Vitamin B Complex) 1 cap DAILY PO 08/11/21 09:00 08/14/21 08:25 Calcium Carbonate/ Glycine (Tums) 500 mg DAILY PO 08/11/21 09:00 08/14/21 08:27 Ascorbic Acid (Vitamin C) 500 mg DAILY PO 08/11/21 09:00 08/14/21 08:26 Quetiapine Fumarate (SEROquel) 62.5 mg QHS PO 08/11/21 21:00 08/14/21 20:26 I have reviewed the current psychotropics carefully including drug interactions. Risk benefit ratio favors no change other than as noted in my dictated progress note. Diagnosis: Problems: (1) Impulse control disorder, unspecified (2) Anxiety disorder, unspecified (3) Dementia, vascular, with depression (4) Dementia, vascular, with delusions (5) Dementia in Alzheimer's disease with depression (6) Dementia in Alzheimer's disease with delusions (7) Major neurocognitive disorder (8) Dementia in Alzheimer's disease with early onset with behavioral disturbance MEL DONOVAN MD Aug 14, 2021 21:50
[2021-08-15] MEDS: ACETAMINOPHEN 325 MG TABLET PO PRN (06:10)
[2021-08-15 06:11] VITALS: BP 115/58
[2021-08-15] MEDS: CHOLECALCIFEROL (VITAMIN D3) 1,000 UNIT TABLET PO SCH (08:24)
[2021-08-15] MEDS: LEFLUNOMIDE 10 MG TABLET PO SCH (08:24)
[2021-08-15] MEDS: ASCORBIC ACID 500 MG TABLET PO SCH (08:25)
[2021-08-15] MEDS: predniSONE 5 MG TABLET PO SCH (08:25)
[2021-08-15] MEDS: MEMANTINE 10 MG TABLET. PO SCH (08:25)
[2021-08-15] MEDS: CALCIUM CARBONATE 500 MG TAB.CHEW PO SCH (08:25)
[2021-08-15] MEDS: DULoxetine HCL 60 MG CAPSULE.DR PO SCH (08:25)
[2021-08-15] MEDS: GALANTAMINE 4 MG TABLET PO SCH (08:26)
[2021-08-15] MEDS: PREGABALIN 75 MG CAPSULE PO SCH ×3 (08:26→20:09)
[2021-08-15] MEDS: VITAMIN B COMPLEX CAPSULE. PO SCH (08:26)
[2021-08-15] MEDS: QUEtiapine 25 MG TABLET. PO SCH ×2 (08:27→20:09)
[2021-08-15] MEDS: FAMOTIDINE 20 MG TABLET PO SCH (08:27)
[2021-08-15] MEDS: KETOCONAZOLE 2% TOPICAL CREAM 30GM TUBE. TP SCH (08:28)
--- NOTE | 2021-08-15 08:32 | PDOC ---
Exam Note: Angelo Note: This note is a late entry for 08/13/2021 covers elements not covered in my initial note. Subjective: The patient was seen individually on 08/13/2021, discussed and reviewed the chart with Batsheva DIEHL. The patient slept 7-1/4 hours previous night. UA was contaminated. Previous evening she was delusional, believed she is with twins, compliant with medications. She felt there was a baby was crying, keeping her up at night. She continues to complain of significant pain. Received Percocet. I met with her in her room. Review of Systems: Ambulation impaired, in wheelchair. She complains of pain. No CV, , pulmonary, eye, ENT system symptoms on review. Reliability poor. Mental Status Exam: She is oriented to herself. She is not very verbally interactive. Insight and judgment, recent and remote memory, attention and concentration, fund of knowledge is poor consistent with her diagnoses. She is looking for her parents. Laboratory Data: Reviewed. Impression: Major neurocognitive disorder, Alzheimer, vascular with delusion, depression, behavioral disturbance. Anxiety disorder unspecified. Impulse control disorder unspecified. Plan: Continue current psychotropics. Reviewed drug interactions, risk-benefit ratio. We have adjusted the Seroquel. Maintain Cymbalta, amitriptyline, Namenda, Galantamine and Seroquel during the day. Adjust as clinically indicated. Assessment: Vital Signs/I&O: Vital Signs Date Time Temp Pulse Resp B/P (MAP) Pulse Ox O2 Delivery O2 Flow Rate FiO2 08/15/21 06:11 98.3 80 18 115/58 (77) 93 Nasal Cannula 2.0 I & O 08/14/21 08/14/21 08/15/21 15:00 23:00 07:00 Intake Total 300 ml 320 ml Balance 300 ml 320 ml Labs: Laboratory Tests Test 08/14/21 15:00 Urine Collection Type Clean catch Urine Color Yellow Urine Clarity Hazy Urine pH 5.5 Urine Specific [place] 1.015 Urine Protein Neg (NEG-TRACE) Urine Glucose (UA) Neg mg/dL (NEG) Urine Ketones (Stick) Neg mg/dL (NEG) Urine Blood Trace (NEG) Urine Nitrite Neg (NEG) Urine Bilirubin Neg (NEG) Urine Urobilinogen Dipstick 0.2 mg/dL (0.2 mg/dL) Urine Leukocyte Esterase Large (NEG) Urine RBC Rare /HPF (0-2) Urine WBC Tntc /HPF (0-4) Urine Squamous Epithelial Cells Few /LPF Urine Bacteria Mod /HPF (0-FEW) Current Medications: I have reviewed the current psychotropics carefully including drug interactions. Risk benefit ratio favors no change other than as noted in my dictated progress note. Diagnosis: Problems: (1) Impulse control disorder, unspecified (2) Anxiety disorder, unspecified (3) Dementia, vascular, with depression (4) Dementia, vascular, with delusions (5) Dementia in Alzheimer's disease with depression (6) Dementia in Alzheimer's disease with delusions (7) Major neurocognitive disorder (8) Dementia in Alzheimer's disease with early onset with behavioral disturbance MEL DONOVAN MD Aug 15, 2021 08:32
--- NOTE | 2021-08-15 08:48 | PDOC ---
Exam Note: Angelo Note: This note is a late entry for 08/14/2021 covers elements not covered in my initial note. Subjective: The patient was seen individually on 08/14/2021, discussed and reviewed the chart with Tessa DIEHL. The patient slept 7 hours previous night. Patient was quite sedated yesterday but today she has been more awake, had a shower. Her appetite is fair. Oxygen sats are slightly low. She has had some wheezing, still complains of pain. Chest x-ray shows atelectasis with reduced lung volume. She got into bed today but stays out of fluids at times. UA repeated today. Review of Systems: Ambulation impaired, in wheelchair. No CV, , pulmonary, eye, ENT system symptoms on review. Reliability poor. Mental Status Exam: She is oriented to herself. Insight and judgment, recent and remote memory, attention and concentration, fund of knowledge is poor consistent with her diagnoses. Laboratory Data: Reviewed. Impression: Major neurocognitive disorder, Alzheimer, vascular with delusion, depression, behavioral disturbance. Anxiety disorder unspecified. Impulse control disorder unspecified. Plan: Continue current psychotropics including amitriptyline, Cymbalta, Namenda, Galantamine, Seroquel, Ambien p.r.n. Reviewed drug interactions, risk- benefit ratio. Make further adjustments as clinically indicated. Assessment: Vital Signs/I&O: Vital Signs Date Time Temp Pulse Resp B/P (MAP) Pulse Ox O2 Delivery O2 Flow Rate FiO2 08/15/21 06:11 98.3 80 18 115/58 (77) 93 Nasal Cannula 2.0 I & O 0 08/14/21 08/14/21 08/15/21 15:00 23:00 07:00 Intake Total 300 ml 320 ml Balance 300 ml 320 ml Labs: Laboratory Tests Test 08/14/21 15:00 Urine Collection Type Clean catch Urine Color Yellow Urine Clarity Hazy Urine pH 5.5 Urine Specific [place] 1.015 Urine Protein Neg (NEG-TRACE) Urine Glucose (UA) Neg mg/dL (NEG) Urine Ketones (Stick) Neg mg/dL (NEG) Urine Blood Trace (NEG) Urine Nitrite Neg (NEG) Urine Bilirubin Neg (NEG) Urine Urobilinogen Dipstick 0.2 mg/dL (0.2 mg/dL) Urine Leukocyte Esterase Large (NEG) Urine RBC Rare /HPF (0-2) Urine WBC Tntc /HPF (0-4) Urine Squamous Epithelial Cells Few /LPF Urine Bacteria Mod /HPF (0-FEW) Current Medications: I have reviewed the current psychotropics carefully including drug interactions. Risk benefit ratio favors no change other than as noted in my dictated progress note. Diagnosis: Problems: (1) Impulse control disorder, unspecified (2) Anxiety disorder, unspecified (3) Dementia, vascular, with depression (4) Dementia, vascular, with delusions (5) Dementia in Alzheimer's disease with depression (6) Dementia in Alzheimer's disease with delusions (7) Major neurocognitive disorder (8) Dementia in Alzheimer's disease with early onset with behavioral disturbance MEL DONOVAN MD Aug 15, 2021 08:48
[2021-08-15 19:00] VITALS: BP 135/69
[2021-08-15] MEDS: AMITRIPTYLINE HCL 50 MG TABLET PO SCH (20:10)
--- NOTE | 2021-08-15 22:01 | PDOC ---
Exam Note: Angelo Note: Please also refer to the separate dictated note~for this date of service dictated separately.~Patient seen individually. Discussed the patient with Nursing staff reviewed the chart.~Reviewed interim history and current functioning. Reviewed vital signs,~Labs/ Radiology~and current medications noted below. Continue current treatment with the changes noted in the dictated addendum note Assessment: Vital Signs/I&O: Vital Signs Date Time Temp Pulse Resp B/P (MAP) Pulse Ox O2 Delivery O2 Flow Rate FiO2 08/15/21 19:00 97.9 85 20 135/69 (91) 94 Room Air 08/15/21 06:11 2.0 I & O 08/14/21 08/14/21 08/15/21 15:00 23:00 07:00 Intake Total 300 ml 320 ml Balance 300 ml 320 ml Current Medications: Meds: Current Medications Medications (Trade) Dose Ordered Sig/Dorinda Route PRN Reason Start Time Stop Time Status Last Admin Dose Admin Acetaminophen (Tylenol) 650 mg PRN Q6HRS PRN PO MILD PAIN / TEMP > 100.3'F 08/10/21 12:45 08/15/21 06:10 Multi-Ingredient Ointment (Analgesic [place]) 1 prema PRN QID PRN TP MUSCLE PAIN 08/10/21 12:45 Al Hydroxide/Mg Hydroxide (Mylanta Plus Xs) 15 ml PRN AFTMEALHC PRN PO DYSPEPSIA 08/10/21 12:45 Magnesium Hydroxide (Milk Of Magnesia) 2,400 mg PRN QHS PRN PO CONSTIPATION 08/10/21 12:45 Amitriptyline HCl (Elavil) 50 mg HS PO 08/10/21 21:00 08/15/21 20:10 Vitamin D (Vitamin D3) 1,000 unit DAILY PO 08/11/21 09:00 08/15/21 08:24 Denosumab (Prolia) 60 mg 1X SQ 08/24/21 09:00 Duloxetine HCl (Cymbalta) 60 mg DAILY PO 08/11/21 09:00 08/15/21 08:25 Famotidine (Pepcid) 20 mg DAILY PO 08/11/21 09:00 08/15/21 08:27 Ketoconazole (Nizoral 2% Topical) 1 prema DAILY TP 08/11/21 09:00 08/15/21 08:28 Oxycodone/ Acetaminophen (Percocet 5/325) 1 tab PRN Q6HRS PRN PO MOD-SEV PAIN 08/10/21 17:00 08/13/21 20:11 Prednisone (Prednisone) 5 mg DAILY PO 08/11/21 09:00 08/15/21 08:25 Quetiapine Fumarate (SEROquel) 25 mg DAILY PO 08/11/21 09:00 08/15/21 08:27 Quetiapine Fumarate (SEROquel) 50 mg QHS PO 08/10/21 21:00 08/11/21 17:56 DC 08/10/21 20:59 Zolpidem Tartrate (Ambien) 5 mg PRN QHS PRN PO INSOMNIA 08/10/21 17:00 08/10/21 20:59 Non-Formulary Medication (Abatacept (Orencia)) 125 mg WEEKLY SQ 08/12/21 09:00 08/12/21 10:48 Galantamine Hydrobromide (Razadyne) 12 mg BIDAFTMEAL PO 08/10/21 18:00 08/15/21 17:05 DC 08/15/21 08:26 Leflunomide (Leflunomide) 20 mg DAILY PO 08/11/21 09:00 08/15/21 08:24 Memantine (Namenda) 10 mg BID PO 08/11/21 09:00 08/15/21 17:05 DC 08/15/21 08:25 Pregabalin (Lyrica) 150 mg TID PO 08/10/21 21:00 08/15/21 20:09 Non-Formulary Medication (Vibegron (Gemtesa)) 75 mg DAILY PO 08/11/21 09:00 Hold Vitamin B Complex (Vitamin B Complex) 1 cap DAILY PO 08/11/21 09:00 08/15/21 08:26 Calcium Carbonate/ Glycine (Tums) 500 mg DAILY PO 08/11/21 09:00 08/15/21 08:25 Ascorbic Acid (Vitamin C) 500 mg DAILY PO 08/11/21 09:00 08/15/21 08:25 Quetiapine Fumarate (SEROquel) 62.5 mg QHS PO 08/11/21 21:00 08/15/21 20:09 I have reviewed the current psychotropics carefully including drug interactions. Risk benefit ratio favors no change other than as noted in my dictated progress note. Diagnosis: Problems: (1) Impulse control disorder, unspecified (2) Anxiety disorder, unspecified (3) Dementia, vascular, with depression (4) Dementia, vascular, with delusions (5) Dementia in Alzheimer's disease with depression (6) Dementia in Alzheimer's disease with delusions (7) Major neurocognitive disorder (8) Dementia in Alzheimer's disease with early onset with behavioral disturbance MEL DONOVAN MD Aug 15, 2021 22:01
[2021-08-16] MEDS: oxyCODONE/APAP 5/325 1 TAB TABLET PO PRN ×2 (06:04→19:36)
[2021-08-16 06:06] VITALS: BP 127/70
[2021-08-16] MEDS: CHOLECALCIFEROL (VITAMIN D3) 1,000 UNIT TABLET PO SCH (08:33)
[2021-08-16] MEDS: VITAMIN B COMPLEX CAPSULE. PO SCH (08:33)
[2021-08-16] MEDS: DULoxetine HCL 60 MG CAPSULE.DR PO SCH (08:33)
[2021-08-16] MEDS: LEFLUNOMIDE 10 MG TABLET PO SCH (08:33)
[2021-08-16] MEDS: predniSONE 5 MG TABLET PO SCH (08:34)
[2021-08-16] MEDS: QUEtiapine 25 MG TABLET. PO SCH ×2 (08:34→19:35)
[2021-08-16] MEDS: FAMOTIDINE 20 MG TABLET PO SCH (08:34)
[2021-08-16] MEDS: CALCIUM CARBONATE 500 MG TAB.CHEW PO SCH (08:35)
[2021-08-16] MEDS: PREGABALIN 75 MG CAPSULE PO SCH ×3 (08:35→19:36)
[2021-08-16] MEDS: ASCORBIC ACID 500 MG TABLET PO SCH (08:36)
[2021-08-16] MEDS: KETOCONAZOLE 2% TOPICAL CREAM 30GM TUBE. TP SCH (08:36)
--- NOTE | 2021-08-16 10:13 | PDOC ---
Exam Note: Angelo Note: This note is a late entry for 08/15/2021 covers elements not covered in my initial note. Subjective: The patient was seen individually on 08/15/2021, discussed and reviewed the chart with Tessa DIEHL. The patient slept 7-1/4 hours previous night. I met with the patient in her room. She has been coming out of her room, somewhat more social. Appetite is poor. She eats like a bird per nursing report. She is on Namenda and Galantamine. They probably are little beneficial at this late stage of dementia and we will stop them. She was seated on the dining table in her room, head bent forward. I encouraged her to sit up and eat which she was not very active with this. Review of Systems: Ambulation impaired, in wheelchair. No CV, , pulmonary, eye, ENT system symptoms on review. Reliability poor. Mental Status Exam: She is oriented to herself. Insight and judgment, recent and remote memory, attention and concentration, fund of knowledge is poor consistent with her diagnoses. Laboratory Data: Reviewed. Impression: Major neurocognitive disorder, Alzheimer, vascular with delusion, depression, behavioral disturbance. Anxiety disorder unspecified. Impulse control disorder unspecified. Plan: We will stop the Namenda and Galantamine. Maintain rest of the psychotropics unchanged. Reviewed drug interactions, risk-benefit ratio. Assessment: Vital Signs/I&O: Vital Signs Date Time Temp Pulse Resp B/P (MAP) Pulse Ox O2 Delivery O2 Flow Rate FiO2 08/16/21 06:06 98.4 86 18 127/70 (89) 91 08/15/21 19:00 Room Air 08/15/21 06:11 2.0 I & O 08/15/21 08/15/21 08/16/21 15:00 23:00 07:00 Intake Total 340 ml 340 ml Balance 340 ml 340 ml Current Medications: I have reviewed the current psychotropics carefully including drug interactions. Risk benefit ratio favors no change other than as noted in my dictated progress note. Diagnosis: Problems: (1) Impulse control disorder, unspecified (2) Anxiety disorder, unspecified (3) Dementia, vascular, with depression (4) Dementia, vascular, with delusions (5) Dementia in Alzheimer's disease with depression (6) Dementia in Alzheimer's disease with delusions (7) Major neurocognitive disorder (8) Dementia in Alzheimer's disease with early onset with behavioral disturbance MEL DONOVAN MD Aug 16, 2021 10:13
[2021-08-16 16:11] VITALS: BP 162/61
[2021-08-16] MEDS: ZOLPIDEM 5 MG TABLET. PO PRN (19:35)
[2021-08-16] MEDS: AMITRIPTYLINE HCL 50 MG TABLET PO SCH (19:36)
--- NOTE | 2021-08-16 21:59 | PDOC ---
Exam Note: Angelo Note: Please also refer to the separate dictated note~for this date of service dictated separately.~Patient seen individually. Discussed the patient with Nursing staff reviewed the chart.~Reviewed interim history and current functioning. Reviewed vital signs,~Labs/ Radiology~and current medications noted below. Continue current treatment with the changes noted in the dictated addendum note Assessment: Vital Signs/I&O: Vital Signs Date Time Temp Pulse Resp B/P (MAP) Pulse Ox O2 Delivery O2 Flow Rate FiO2 08/16/21 19:36 18 Nasal Cannula 2.0 08/16/21 16:11 98.2 100 162/61 (94) 92 I & O 08/15/21 08/15/21 08/16/21 15:00 23:00 07:00 Intake Total 340 ml 340 ml Balance 340 ml 340 ml Current Medications: Meds: Current Medications Medications (Trade) Dose Ordered Sig/Dorinda Route PRN Reason Start Time Stop Time Status Last Admin Dose Admin Acetaminophen (Tylenol) 650 mg PRN Q6HRS PRN PO MILD PAIN / TEMP > 100.3'F 08/10/21 12:45 08/15/21 06:10 Multi-Ingredient Ointment (Analgesic [place]) 1 prema PRN QID PRN TP MUSCLE PAIN 08/10/21 12:45 Al Hydroxide/Mg Hydroxide (Mylanta Plus Xs) 15 ml PRN AFTMEALHC PRN PO DYSPEPSIA 08/10/21 12:45 Magnesium Hydroxide (Milk Of Magnesia) 2,400 mg PRN QHS PRN PO CONSTIPATION 08/10/21 12:45 Amitriptyline HCl (Elavil) 50 mg HS PO 08/10/21 21:00 08/16/21 19:36 Vitamin D (Vitamin D3) 1,000 unit DAILY PO 08/11/21 09:00 08/16/21 08:33 Denosumab (Prolia) 60 mg 1X SQ 08/24/21 09:00 Duloxetine HCl (Cymbalta) 60 mg DAILY PO 08/11/21 09:00 08/16/21 08:33 Famotidine (Pepcid) 20 mg DAILY PO 08/11/21 09:00 08/16/21 08:34 Ketoconazole (Nizoral 2% Topical) 1 prema DAILY TP 08/11/21 09:00 08/15/21 08:28 Oxycodone/ Acetaminophen (Percocet 5/325) 1 tab PRN Q6HRS PRN PO MOD-SEV PAIN 08/10/21 17:00 08/16/21 19:36 Prednisone (Prednisone) 5 mg DAILY PO 08/11/21 09:00 08/16/21 08:34 Quetiapine Fumarate (SEROquel) 25 mg DAILY PO 08/11/21 09:00 08/16/21 08:34 Quetiapine Fumarate (SEROquel) 50 mg QHS PO 08/10/21 21:00 08/11/21 17:56 DC 08/10/21 20:59 Zolpidem Tartrate (Ambien) 5 mg PRN QHS PRN PO INSOMNIA 08/10/21 17:00 08/16/21 19:35 Non-Formulary Medication (Abatacept (Orencia)) 125 mg WEEKLY SQ 08/12/21 09:00 08/12/21 10:48 Galantamine Hydrobromide (Razadyne) 12 mg BIDAFTMEAL PO 08/10/21 18:00 08/15/21 17:05 DC 08/15/21 08:26 Leflunomide (Leflunomide) 20 mg DAILY PO 08/11/21 09:00 08/16/21 08:33 Memantine (Namenda) 10 mg BID PO 08/11/21 09:00 08/15/21 17:05 DC 08/15/21 08:25 Pregabalin (Lyrica) 150 mg TID PO 08/10/21 21:00 08/16/21 19:36 Non-Formulary Medication (Vibegron (Gemtesa)) 75 mg DAILY PO 08/11/21 09:00 Hold Vitamin B Complex (Vitamin B Complex) 1 cap DAILY PO 08/11/21 09:00 08/16/21 08:33 Calcium Carbonate/ Glycine (Tums) 500 mg DAILY PO 08/11/21 09:00 08/16/21 08:35 Ascorbic Acid (Vitamin C) 500 mg DAILY PO 08/11/21 09:00 08/16/21 08:36 Quetiapine Fumarate (SEROquel) 62.5 mg QHS PO 08/11/21 21:00 08/16/21 19:35 Bupropion HCl (Wellbutrin Xl) 150 mg DAILY PO 08/17/21 09:00 I have reviewed the current psychotropics carefully including drug interactions. Risk benefit ratio favors no change other than as noted in my dictated progress note. Diagnosis: Problems: (1) Impulse control disorder, unspecified (2) Anxiety disorder, unspecified (3) Dementia, vascular, with depression (4) Dementia, vascular, with delusions (5) Dementia in Alzheimer's disease with depression (6) Dementia in Alzheimer's disease with delusions (7) Major neurocognitive disorder (8) Dementia in Alzheimer's disease with early onset with behavioral disturbance MEL DONOVAN MD Aug 16, 2021 21:59
[2021-08-17 06:35] VITALS: BP 118/69
[2021-08-17 07:37] LABS: ALBUMIN 2.2 g/dL (3.4-5.0); ALBUMIN/GLOBULIN RATIO 0.8 (1.0-1.7); CALCIUM 8.4 mg/dL (8.5-10.1); CREATININE 0.7 mg/dL (0.6-1.0); GFR 82.3; POTASSIUM 3.4 mmol/L (3.5-5.1); TOTAL BILIRUBIN 0.4 mg/dL (0.2-1.0); TOTAL PROTEIN 5.1 g/dL (6.4-8.2)
[2021-08-17] MEDS: ASCORBIC ACID 500 MG TABLET PO SCH (08:57)
[2021-08-17] MEDS: CHOLECALCIFEROL (VITAMIN D3) 1,000 UNIT TABLET PO SCH (08:57)
[2021-08-17] MEDS: DULoxetine HCL 60 MG CAPSULE.DR PO SCH (08:57)
[2021-08-17] MEDS: PREGABALIN 75 MG CAPSULE PO SCH ×3 (08:58→20:33)
[2021-08-17] MEDS: buPROPion XL 150 MG TAB.ER.24H PO SCH (08:58)
[2021-08-17] MEDS: VITAMIN B COMPLEX CAPSULE. PO SCH (08:58)
[2021-08-17] MEDS: CALCIUM CARBONATE 500 MG TAB.CHEW PO SCH (08:58)
[2021-08-17] MEDS: LEFLUNOMIDE 10 MG TABLET PO SCH (08:58)
[2021-08-17] MEDS: QUEtiapine 25 MG TABLET. PO SCH ×2 (08:58→20:30)
[2021-08-17] MEDS: predniSONE 5 MG TABLET PO SCH (08:58)
[2021-08-17] MEDS: FAMOTIDINE 20 MG TABLET PO SCH (08:59)
[2021-08-17] MEDS: KETOCONAZOLE 2% TOPICAL CREAM 30GM TUBE. TP SCH (08:59)
--- NOTE | 2021-08-17 09:17 | PDOC ---
Exam Note: Angelo Note: This note is a late entry for 08/16/2021 covers elements not covered in my initial note. Subjective: The patient was seen individually on 08/16/2021, discussed and reviewed the chart with Travis DIEHL. The patient slept 7 hours previous night. She spends much time in her room this is where I met with her. Appetite is poor. We will check with her verifying machine operator for any recommendations. Yesterday she came out of the room, somewhat obsessively picking on lint on her pants, oblivious to the nursing staff who would come with her medications. Covid swab was done today. She is quite withdrawn. We will also check her metabolic profile in the morning to makes sure she is not getting dehydrated. Review of Systems: Ambulation impaired, in wheelchair. No CV, , pulmonary, eye, ENT system symptoms on review. Reliability poor. Mental Status Exam: She is oriented to herself. Insight and judgment, recent and remote memory, attention and concentration, fund of knowledge is poor consistent with her diagnoses. Laboratory Data: Reviewed. Impression: Major neurocognitive disorder, Alzheimer, vascular with delusion, depression, behavioral disturbance. Anxiety disorder unspecified. Impulse control disorder unspecified. Plan: Maintain rest of the psychotropics unchanged. Reviewed drug interactions, risk-benefit ratio. We will start Wellbutrin XL 150 mg in the morning. Consult dietary. Check chemistry profile in the morning. Adjust further as clinically indicated. Assessment: Vital Signs/I&O: Vital Signs Date Time Temp Pulse Resp B/P (MAP) Pulse Ox O2 Delivery O2 Flow Rate FiO2 08/17/21 06:35 97.2 89 18 118/69 (85) 91 08/16/21 20:05 BiPAP/CPAP 2.0 I & O 08/16/21 08/16/21 08/17/21 15:00 23:00 07:00 Intake Total 360 ml 120 ml Balance 360 ml 120 ml Labs: Laboratory Tests Test 08/17/21 07:09 Sodium Level 145 mmol/L (136-145) Potassium Level 3.4 mmol/L (3.5-5.1) L Chloride Level 107 mmol/L (98-107) Carbon Dioxide Level 29 mmol/L (21-32) Anion Gap 9 (6-14) Blood Urea Nitrogen 12 mg/dL (7-20) Creatinine 0.7 mg/dL (0.6-1.0) Estimated GFR (Cockcroft-Gault) 82.3 BUN/Creatinine Ratio 17 (6-20) Glucose Level 85 mg/dL (70-99) Calcium Level 8.4 mg/dL (8.5-10.1) L Total Bilirubin 0.4 mg/dL (0.2-1.0) Aspartate Amino Transferase (AST) 48 U/L (15-37) H Alanine Aminotransferase (ALT) 34 U/L (14-59) Alkaline Phosphatase 118 U/L (46-116) H Total Protein 5.1 g/dL (6.4-8.2) L Albumin 2.2 g/dL (3.4-5.0) L Albumin/Globulin Ratio 0.8 (1.0-1.7) L Current Medications: Meds: Current Medications Medications (Trade) Dose Ordered Sig/Dorinda Route PRN Reason Start Time Stop Time Status Last Admin Dose Admin Bupropion HCl (Wellbutrin Xl) 150 mg DAILY PO 08/17/21 09:00 08/17/21 08:58 I have reviewed the current psychotropics carefully including drug interactions. Risk benefit ratio favors no change other than as noted in my dictated progress note. Diagnosis: Problems: (1) Impulse control disorder, unspecified (2) Anxiety disorder, unspecified (3) Dementia, vascular, with depression (4) Dementia, vascular, with delusions (5) Dementia in Alzheimer's disease with depression (6) Dementia in Alzheimer's disease with delusions (7) Major neurocognitive disorder (8) Dementia in Alzheimer's disease with early onset with behavioral disturbance MEL DONOVAN MD Aug 17, 2021 09:17
[2021-08-17 16:44] VITALS: BP 125/68
[2021-08-17] MEDS: AMITRIPTYLINE HCL 50 MG TABLET PO SCH (20:30)
[2021-08-17] MEDS: AMMONIUM LACTATE 12% TOPICAL LOTION 226GM BOTTLE. TP SCH (20:31)
--- NOTE | 2021-08-17 21:39 | PDOC ---
Exam Note: Angelo Note: Please also refer to the separate dictated note~for this date of service dictated separately.~Patient seen individually. Discussed the patient with Nursing staff reviewed the chart.~Reviewed interim history and current functioning. Reviewed vital signs,~Labs/ Radiology~and current medications noted below. Continue current treatment with the changes noted in the dictated addendum note Assessment: Vital Signs/I&O: Vital Signs Date Time Temp Pulse Resp B/P (MAP) Pulse Ox O2 Delivery O2 Flow Rate FiO2 08/17/21 16:44 97.8 89 18 125/68 (87) 92 08/16/21 20:05 BiPAP/CPAP 2.0 I & O 08/16/21 08/16/21 08/17/21 15:00 23:00 07:00 Intake Total 360 ml 120 ml Balance 360 ml 120 ml Labs: Laboratory Tests Test 08/17/21 07:09 Sodium Level 145 mmol/L (136-145) Potassium Level 3.4 mmol/L (3.5-5.1) L Chloride Level 107 mmol/L (98-107) Carbon Dioxide Level 29 mmol/L (21-32) Anion Gap 9 (6-14) Blood Urea Nitrogen 12 mg/dL (7-20) Creatinine 0.7 mg/dL (0.6-1.0) Estimated GFR (Cockcroft-Gault) 82.3 BUN/Creatinine Ratio 17 (6-20) Glucose Level 85 mg/dL (70-99) Calcium Level 8.4 mg/dL (8.5-10.1) L Total Bilirubin 0.4 mg/dL (0.2-1.0) Aspartate Amino Transferase (AST) 48 U/L (15-37) H Alanine Aminotransferase (ALT) 34 U/L (14-59) Alkaline Phosphatase 118 U/L (46-116) H Total Protein 5.1 g/dL (6.4-8.2) L Albumin 2.2 g/dL (3.4-5.0) L Albumin/Globulin Ratio 0.8 (1.0-1.7) L Current Medications: Meds: Laboratory Tests Test 08/17/21 07:09 Sodium Level 145 mmol/L Potassium Level 3.4 mmol/L Chloride Level 107 mmol/L Carbon Dioxide Level 29 mmol/L Anion Gap 9 Blood Urea Nitrogen 12 mg/dL Creatinine 0.7 mg/dL Estimated GFR (Cockcroft-Gault) 82.3 BUN/Creatinine Ratio 17 Glucose Level 85 mg/dL Calcium Level 8.4 mg/dL Total Bilirubin 0.4 mg/dL Aspartate Amino Transf (AST/SGOT) 48 U/L Alanine Aminotransferase (ALT/SGPT) 34 U/L Alkaline Phosphatase 118 U/L Total Protein 5.1 g/dL Albumin 2.2 g/dL Albumin/Globulin Ratio 0.8 Current Medications Medications (Trade) Dose Ordered Sig/Dorinda Route PRN Reason Start Time Stop Time Status Last Admin Dose Admin Acetaminophen (Tylenol) 650 mg PRN Q6HRS PRN PO MILD PAIN / TEMP > 100.3'F 08/10/21 12:45 08/15/21 06:10 Multi-Ingredient Ointment (Analgesic [place]) 1 prema PRN QID PRN TP MUSCLE PAIN 08/10/21 12:45 Al Hydroxide/Mg Hydroxide (Mylanta Plus Xs) 15 ml PRN AFTMEALHC PRN PO DYSPEPSIA 08/10/21 12:45 Magnesium Hydroxide (Milk Of Magnesia) 2,400 mg PRN QHS PRN PO CONSTIPATION 08/10/21 12:45 Amitriptyline HCl (Elavil) 50 mg HS PO 08/10/21 21:00 08/17/21 20:30 Vitamin D (Vitamin D3) 1,000 unit DAILY PO 08/11/21 09:00 08/17/21 08:57 Denosumab (Prolia) 60 mg 1X SQ 08/24/21 09:00 Duloxetine HCl (Cymbalta) 60 mg DAILY PO 08/11/21 09:00 08/17/21 08:57 Famotidine (Pepcid) 20 mg DAILY PO 08/11/21 09:00 08/17/21 08:59 Ketoconazole (Nizoral 2% Topical) 1 prema DAILY TP 08/11/21 09:00 08/17/21 08:59 Oxycodone/ Acetaminophen (Percocet 5/325) 1 tab PRN Q6HRS PRN PO MOD-SEV PAIN 08/10/21 17:00 08/16/21 19:36 Prednisone (Prednisone) 5 mg DAILY PO 08/11/21 09:00 08/17/21 08:58 Quetiapine Fumarate (SEROquel) 25 mg DAILY PO 08/11/21 09:00 08/17/21 08:58 Quetiapine Fumarate (SEROquel) 50 mg QHS PO 08/10/21 21:00 08/11/21 17:56 DC 08/10/21 20:59 Zolpidem Tartrate (Ambien) 5 mg PRN QHS PRN PO INSOMNIA 08/10/21 17:00 08/16/21 19:35 Non-Formulary Medication (Abatacept (Orencia)) 125 mg WEEKLY SQ 08/12/21 09:00 08/12/21 10:48 Galantamine Hydrobromide (Razadyne) 12 mg BIDAFTMEAL PO 08/10/21 18:00 08/15/21 17:05 DC 08/15/21 08:26 Leflunomide (Leflunomide) 20 mg DAILY PO 08/11/21 09:00 08/17/21 08:58 Memantine (Namenda) 10 mg BID PO 08/11/21 09:00 08/15/21 17:05 DC 08/15/21 08:25 Pregabalin (Lyrica) 150 mg TID PO 08/10/21 21:00 08/17/21 20:33 Non-Formulary Medication (Vibegron (Gemtesa)) 75 mg DAILY PO 08/11/21 09:00 Hold Vitamin B Complex (Vitamin B Complex) 1 cap DAILY PO 08/11/21 09:00 08/17/21 08:58 Calcium Carbonate/ Glycine (Tums) 500 mg DAILY PO 08/11/21 09:00 08/17/21 08:58 Ascorbic Acid (Vitamin C) 500 mg DAILY PO 08/11/21 09:00 08/17/21 08:57 Quetiapine Fumarate (SEROquel) 62.5 mg QHS PO 08/11/21 21:00 08/17/21 20:30 Bupropion HCl (Wellbutrin Xl) 150 mg DAILY PO 08/17/21 09:00 08/17/21 08:58 Lactic Acid (Lac-Hydrin) 1 prema BID TP 08/17/21 21:00 08/17/21 20:31 Current Medications Medications (Trade) Dose Ordered Sig/Dorinda Route PRN Reason Start Time Stop Time Status Last Admin Dose Admin Bupropion HCl (Wellbutrin Xl) 150 mg DAILY PO 08/17/21 09:00 08/17/21 08:58 Lactic Acid (Lac-Hydrin) 1 prema BID TP 08/17/21 21:00 08/17/21 20:31 I have reviewed the current psychotropics carefully including drug interactions. Risk benefit ratio favors no change other than as noted in my dictated progress note. Diagnosis: Problems: (1) Impulse control disorder, unspecified (2) Anxiety disorder, unspecified (3) Dementia, vascular, with depression (4) Dementia, vascular, with delusions (5) Dementia in Alzheimer's disease with depression (6) Dementia in Alzheimer's disease with delusions (7) Major neurocognitive disorder (8) Dementia in Alzheimer's disease with early onset with behavioral disturbance MEL DONOVAN MD Aug 17, 2021 21:39
[2021-08-18 06:36] VITALS: BP 128/84
[2021-08-18] MEDS: CHOLECALCIFEROL (VITAMIN D3) 1,000 UNIT TABLET PO SCH (07:38)
[2021-08-18] MEDS: predniSONE 5 MG TABLET PO SCH (07:38)
[2021-08-18] MEDS: VITAMIN B COMPLEX CAPSULE. PO SCH (07:38)
[2021-08-18] MEDS: DULoxetine HCL 60 MG CAPSULE.DR PO SCH (07:38)
[2021-08-18] MEDS: CALCIUM CARBONATE 500 MG TAB.CHEW PO SCH (07:38)
[2021-08-18] MEDS: ASCORBIC ACID 500 MG TABLET PO SCH (07:38)
[2021-08-18] MEDS: PREGABALIN 75 MG CAPSULE PO SCH ×3 (07:39→21:48)
[2021-08-18] MEDS: buPROPion XL 150 MG TAB.ER.24H PO SCH (07:39)
[2021-08-18] MEDS: QUEtiapine 25 MG TABLET. PO SCH ×2 (07:39→21:48)
[2021-08-18] MEDS: AMMONIUM LACTATE 12% TOPICAL LOTION 226GM BOTTLE. TP SCH ×2 (07:40→21:49)
[2021-08-18] MEDS: LEFLUNOMIDE 10 MG TABLET PO SCH (07:40)
[2021-08-18] MEDS: KETOCONAZOLE 2% TOPICAL CREAM 30GM TUBE. TP SCH (07:40)
[2021-08-18] MEDS: FAMOTIDINE 20 MG TABLET PO SCH (07:44)
[2021-08-18 15:48] VITALS: BP 115/77
--- NOTE | 2021-08-18 19:00 | EKG ---
[address] [address] Test Date: 2021-08-18 Test Time: 09:40:14 Pat Name: ZOYA STEEL Department: Room: [address] [place] [address] Gender: F Wall Man: : 1950 Requested By: MEL DONOVAN Order Number: [id number] Reading MD: Jaguar Adrian Measurements Intervals [place] Rate: 81 P: 47 AK: 204 QRS: -38 QRSD: 76 T: 6 QT: 422 QTc: 491 Interpretive Statements SINUS RHYTHM ABNORMAL LEFT AXIS DEVIATION LEFT ANTERIOR FASCICULAR BLOCK PROLONGED QT ABNORMAL ECG RI6.01 No previous ECG available for comparison Electronically Signed On 08-25-2021 14:17:19 CDT by Jaguar Adrian
[2021-08-18] MEDS: AMITRIPTYLINE HCL 50 MG TABLET PO SCH (21:49)
--- NOTE | 2021-08-18 22:20 | PDOC ---
Exam Note: Angelo Note: Please also refer to the separate dictated note~for this date of service dictated separately.~Patient seen individually. Discussed the patient with Nursing staff reviewed the chart.~Reviewed interim history and current functioning. Reviewed vital signs,~Labs/ Radiology~and current medications noted below. Continue current treatment with the changes noted in the dictated addendum note Assessment: Vital Signs/I&O: Vital Signs Date Time Temp Pulse Resp B/P (MAP) Pulse Ox O2 Delivery O2 Flow Rate FiO2 08/18/21 15:48 97.3 80 18 115/77 (90) 93 08/16/21 20:05 BiPAP/CPAP 2.0 I & O 08/17/21 08/17/21 08/18/21 15:00 23:00 07:00 Intake Total 240 ml 100 ml Balance 240 ml 100 ml Current Medications: Meds: Current Medications Medications (Trade) Dose Ordered Sig/Dorinda Route PRN Reason Start Time Stop Time Status Last Admin Dose Admin Acetaminophen (Tylenol) 650 mg PRN Q6HRS PRN PO MILD PAIN / TEMP > 100.3'F 08/10/21 12:45 08/15/21 06:10 Multi-Ingredient Ointment (Analgesic [place]) 1 prema PRN QID PRN TP MUSCLE PAIN 08/10/21 12:45 Al Hydroxide/Mg Hydroxide (Mylanta Plus Xs) 15 ml PRN AFTMEALHC PRN PO DYSPEPSIA 08/10/21 12:45 Magnesium Hydroxide (Milk Of Magnesia) 2,400 mg PRN QHS PRN PO CONSTIPATION 08/10/21 12:45 Amitriptyline HCl (Elavil) 50 mg HS PO 08/10/21 21:00 08/18/21 21:49 Vitamin D (Vitamin D3) 1,000 unit DAILY PO 08/11/21 09:00 08/18/21 07:38 Denosumab (Prolia) 60 mg 1X SQ 08/24/21 09:00 Duloxetine HCl (Cymbalta) 60 mg DAILY PO 08/11/21 09:00 08/18/21 07:38 Famotidine (Pepcid) 20 mg DAILY PO 08/11/21 09:00 08/18/21 07:44 Ketoconazole (Nizoral 2% Topical) 1 prema DAILY TP 08/11/21 09:00 08/18/21 07:40 Oxycodone/ Acetaminophen (Percocet 5/325) 1 tab PRN Q6HRS PRN PO MOD-SEV PAIN 08/10/21 17:00 08/16/21 19:36 Prednisone (Prednisone) 5 mg DAILY PO 08/11/21 09:00 08/18/21 07:38 Quetiapine Fumarate (SEROquel) 25 mg DAILY PO 08/11/21 09:00 08/18/21 07:39 Quetiapine Fumarate (SEROquel) 50 mg QHS PO 08/10/21 21:00 08/11/21 17:56 DC 08/10/21 20:59 Zolpidem Tartrate (Ambien) 5 mg PRN QHS PRN PO INSOMNIA 08/10/21 17:00 08/16/21 19:35 Non-Formulary Medication (Abatacept (Orencia)) 125 mg WEEKLY SQ 08/12/21 09:00 08/12/21 10:48 Galantamine Hydrobromide (Razadyne) 12 mg BIDAFTMEAL PO 08/10/21 18:00 08/15/21 17:05 DC 08/15/21 08:26 Leflunomide (Leflunomide) 20 mg DAILY PO 08/11/21 09:00 08/18/21 07:40 Memantine (Namenda) 10 mg BID PO 08/11/21 09:00 08/15/21 17:05 DC 08/15/21 08:25 Pregabalin (Lyrica) 150 mg TID PO 08/10/21 21:00 08/18/21 21:48 Non-Formulary Medication (Vibegron (Gemtesa)) 75 mg DAILY PO 08/11/21 09:00 Hold Vitamin B Complex (Vitamin B Complex) 1 cap DAILY PO 08/11/21 09:00 08/18/21 07:38 Calcium Carbonate/ Glycine (Tums) 500 mg DAILY PO 08/11/21 09:00 08/18/21 07:38 Ascorbic Acid (Vitamin C) 500 mg DAILY PO 08/11/21 09:00 08/18/21 07:38 Quetiapine Fumarate (SEROquel) 62.5 mg QHS PO 08/11/21 21:00 4/8/22 21:48 Bupropion HCl (Wellbutrin Xl) 150 mg DAILY PO 08/17/21 09:00 08/18/21 07:39 Lactic Acid (Lac-Hydrin) 1 prema BID TP 08/17/21 21:00 08/18/21 21:49 I have reviewed the current psychotropics carefully including drug interactions. Risk benefit ratio favors no change other than as noted in my dictated progress note. Diagnosis: Problems: (1) Impulse control disorder, unspecified (2) Anxiety disorder, unspecified (3) Dementia, vascular, with depression (4) Dementia, vascular, with delusions (5) Dementia in Alzheimer's disease with depression (6) Dementia in Alzheimer's disease with delusions (7) Major neurocognitive disorder (8) Dementia in Alzheimer's disease with early onset with behavioral disturbance MEL DNOOVAN MD Aug 18, 2021 22:20
[2021-08-19 06:09] VITALS: BP 116/71
[2021-08-19] MEDS: predniSONE 5 MG TABLET PO SCH (08:30)
[2021-08-19] MEDS: buPROPion XL 150 MG TAB.ER.24H PO SCH (08:30)
[2021-08-19] MEDS: VITAMIN B COMPLEX CAPSULE. PO SCH (08:30)
[2021-08-19] MEDS: CHOLECALCIFEROL (VITAMIN D3) 1,000 UNIT TABLET PO SCH (08:30)
[2021-08-19] MEDS: ASCORBIC ACID 500 MG TABLET PO SCH (08:31)
[2021-08-19] MEDS: DULoxetine HCL 60 MG CAPSULE.DR PO SCH (08:31)
[2021-08-19] MEDS: AMMONIUM LACTATE 12% TOPICAL LOTION 226GM BOTTLE. TP SCH ×2 (08:31→20:33)
[2021-08-19] MEDS: LEFLUNOMIDE 10 MG TABLET PO SCH (08:31)
[2021-08-19] MEDS: PREGABALIN 75 MG CAPSULE PO SCH ×3 (08:31→20:32)
[2021-08-19] MEDS: CALCIUM CARBONATE 500 MG TAB.CHEW PO SCH (08:31)
[2021-08-19] MEDS: FAMOTIDINE 20 MG TABLET PO SCH (08:31)
[2021-08-19] MEDS: KETOCONAZOLE 2% TOPICAL CREAM 30GM TUBE. TP SCH (08:31)
[2021-08-19] MEDS: QUEtiapine 25 MG TABLET. PO SCH ×2 (08:31→20:33)
[2021-08-19] MEDS: ABATACEPT 125 MG SQ SCH (08:32)
--- NOTE | 2021-08-19 10:28 | PDOC ---
Exam Note: Angelo Note: This note is a late entry for 08/17/2021 covers elements not covered in my initial note. Subjective: The patient was reviewed at treatment team meeting individually in the morning on 08/17/2021 with July Mane and Marcela Baptiste (manager social services), Nevaeh, activity therapy, and Fito DIEHL, discussed and reviewed the chart. Discussed the patients diagnoses, progress, placement options at length. The patient slept 7-1/4 hours previous night. Average sleep 7 hours. Appetite 50%, poor. Her Lincoln attended the treatment team meeting. She did take her strawberry Ensure in the morning and with each meal. She has difficulty with transfers. Urine showed less than 10,000 microorganisms. At times she believes she is at school. She has been needing oxygen at night, otherwise her saturations drop. BUN has changed from 12 to 16 and creatinine from 0.7 to 0.9 in the last few days and we will defer to Dr. La for dehydration. Review of Systems: Ambulation impaired, in wheelchair. No CV, , pulmonary, eye, ENT system symptoms on review. Reliability poor. Mental Status Exam: She is oriented to herself. I met with her in her room. She remains withdrawn. She is in wheelchair, bent forward. Insight and judgment, recent and remote memory, attention and concentration, fund of knowledge is poor consistent with her diagnoses. Laboratory Data: Reviewed. Impression: Major neurocognitive disorder, Alzheimer, vascular with delusion, depression, behavioral disturbance. Anxiety disorder unspecified. Impulse control disorder unspecified. Plan: Maintain rest of the psychotropics unchanged. Reviewed drug interactions, risk-benefit ratio. We will defer medical management to Dr. La. We will monitor dehydration. Continue Cymbalta, amitriptyline, Seroquel for now along with Ambien. Adjust as clinically indicated. She may need nursing facility placement and discussed this with the at some length. Assessment: Vital Signs/I&O: Vital Signs Date Time Temp Pulse Resp B/P (MAP) Pulse Ox O2 Delivery O2 Flow Rate FiO2 08/19/21 06:09 97.5 102 16 116/71 (86) 90 08/16/21 20:05 BiPAP/CPAP 2.0 I & O 08/18/21 08/18/21 08/19/21 14:59 22:59 06:59 Intake Total 480 ml 600 ml Balance 480 ml 600 ml Current Medications: I have reviewed the current psychotropics carefully including drug interactions. Risk benefit ratio favors no change other than as noted in my dictated progress note. Diagnosis: Problems: (1) Impulse control disorder, unspecified (2) Anxiety disorder, unspecified (3) Dementia, vascular, with depression (4) Dementia, vascular, with delusions (5) Dementia in Alzheimer's disease with depression (6) Dementia in Alzheimer's disease with delusions (7) Major neurocognitive disorder (8) Dementia in Alzheimer's disease with early onset with behavioral disturbance MEL DONOVAN MD Aug 19, 2021 10:28
[2021-08-19 11:03] LABS: BASO % 1 % (0-3); EOS # 0.8 x10^3/uL (0.0-0.7); EOS % 12 % (0-3); HEMATOCRIT 35.1 % (36.0-47.0); LYMPH # 1.1 x10^3/uL (1.0-4.8); LYMPH % 16 % (24-48); MEAN CORPUSCULAR HEMOGLOBIN 29 pg (25-35); MEAN CORPUSCULAR HGB CONC 31 g/dL (31-37); MEAN CORPUSCULAR VOLUME 91 fL (79-100); MONO % 14 % (0-9); NEUT % 58 % (31-73); PLATELET COUNT 247 x10^3/uL (140-400); RED BLOOD COUNT 3.85 x10^6/uL (3.50-5.40); RED CELL DISTRIBUTION WIDTH 18.1 % (11.5-14.5); WHITE BLOOD COUNT 6.9 x10^3/uL (4.0-11.0)
[2021-08-19 11:13] LABS: ALBUMIN 2.5 g/dL (3.4-5.0); ALBUMIN/GLOBULIN RATIO 0.6 (1.0-1.7); CALCIUM 9.3 mg/dL (8.5-10.1); CREATININE 0.8 mg/dL (0.6-1.0); GFR 70.5; TOTAL BILIRUBIN 0.4 mg/dL (0.2-1.0); TOTAL PROTEIN 6.4 g/dL (6.4-8.2)
[2021-08-19 16:35] VITALS: BP 133/84
[2021-08-19] MEDS: AMITRIPTYLINE HCL 50 MG TABLET PO SCH (20:32)
--- NOTE | 2021-08-19 22:04 | PDOC ---
Exam Note: Angelo Note: Please also refer to the separate dictated note~for this date of service dictated separately.~Patient seen individually. Discussed the patient with Nursing staff reviewed the chart.~Reviewed interim history and current functioning. Reviewed vital signs,~Labs/ Radiology~and current medications noted below. Continue current treatment with the changes noted in the dictated addendum note Assessment: Vital Signs/I&O: Vital Signs Date Time Temp Pulse Resp B/P (MAP) Pulse Ox O2 Delivery O2 Flow Rate FiO2 08/19/21 16:35 97.8 99 16 133/84 (100) 95 08/16/21 20:05 BiPAP/CPAP 2.0 I & O 08/18/21 08/18/21 08/19/21 14:59 22:59 06:59 Intake Total 480 ml 600 ml Balance 480 ml 600 ml Labs: Laboratory Tests Test 08/19/21 09:57 White Blood Count 6.9 x10^3/uL (4.0-11.0) Red Blood Count 3.85 x10^6/uL (3.50-5.40) Hemoglobin 11.0 g/dL (12.0-15.5) L Hematocrit 35.1 % (36.0-47.0) L Mean Corpuscular Volume 91 fL (79-100) Mean Corpuscular Hemoglobin 29 pg (25-35) Mean Corpuscular Hemoglobin Concent 31 g/dL (31-37) Red Cell Distribution Width 18.1 % (11.5-14.5) H Platelet Count 247 x10^3/uL (140-400) Neutrophils (%) (Auto) 58 % (31-73) Lymphocytes (%) (Auto) 16 % (24-48) L Monocytes (%) (Auto) 14 % (0-9) H Eosinophils (%) (Auto) 12 % (0-3) H Basophils (%) (Auto) 1 % (0-3) Neutrophils # (Auto) 4.0 x10^3uL (1.8-7.7) Lymphocytes # (Auto) 1.1 x10^3/uL (1.0-4.8) Monocytes # (Auto) 1.0 x10^3/uL (0.0-1.1) Eosinophils # (Auto) 0.8 x10^3/uL (0.0-0.7) H Basophils # (Auto) 0.0 x10^3/uL (0.0-0.2) Sodium Level 145 mmol/L (136-145) Potassium Level 3.0 mmol/L (3.5-5.1) L Chloride Level 104 mmol/L (98-107) Carbon Dioxide Level 30 mmol/L (21-32) Anion Gap 11 (6-14) Blood Urea Nitrogen 13 mg/dL (7-20) Creatinine 0.8 mg/dL (0.6-1.0) Estimated GFR (Cockcroft-Gault) 70.5 BUN/Creatinine Ratio 16 (6-20) Glucose Level 134 mg/dL (70-99) H Calcium Level 9.3 mg/dL (8.5-10.1) Total Bilirubin 0.4 mg/dL (0.2-1.0) Aspartate Amino Transferase (AST) 30 U/L (15-37) Alanine Aminotransferase (ALT) 32 U/L (14-59) Alkaline Phosphatase 116 U/L (46-116) Total Protein 6.4 g/dL (6.4-8.2) Albumin 2.5 g/dL (3.4-5.0) L Albumin/Globulin Ratio 0.6 (1.0-1.7) L Current Medications: Meds: Laboratory Tests Test 08/19/21 09:57 White Blood Count 6.9 x10^3/uL Red Blood Count 3.85 x10^6/uL Hemoglobin 11.0 g/dL Hematocrit 35.1 % Mean Corpuscular Volume 91 fL Mean Corpuscular Hemoglobin 29 pg Mean Corpuscular Hemoglobin Concent 31 g/dL Red Cell Distribution Width 18.1 % Platelet Count 247 x10^3/uL Neutrophils (%) (Auto) 58 % Lymphocytes (%) (Auto) 16 % Monocytes (%) (Auto) 14 % Eosinophils (%) (Auto) 12 % Basophils (%) (Auto) 1 % Neutrophils # (Auto) 4.0 x10^3uL Lymphocytes # (Auto) 1.1 x10^3/uL Monocytes # (Auto) 1.0 x10^3/uL Eosinophils # (Auto) 0.8 x10^3/uL Basophils # (Auto) 0.0 x10^3/uL Sodium Level 145 mmol/L Potassium Level 3.0 mmol/L Chloride Level 104 mmol/L Carbon Dioxide Level 30 mmol/L Anion Gap 11 Blood Urea Nitrogen 13 mg/dL Creatinine 0.8 mg/dL Estimated GFR (Cockcroft-Gault) 70.5 BUN/Creatinine Ratio 16 Glucose Level 134 mg/dL Calcium Level 9.3 mg/dL Total Bilirubin 0.4 mg/dL Aspartate Amino Transf (AST/SGOT) 30 U/L Alanine Aminotransferase (ALT/SGPT) 32 U/L Alkaline Phosphatase 116 U/L Total Protein 6.4 g/dL Albumin 2.5 g/dL Albumin/Globulin Ratio 0.6 Current Medications Medications (Trade) Dose Ordered Sig/Dorinda Route PRN Reason Start Time Stop Time Status Last Admin Dose Admin Acetaminophen (Tylenol) 650 mg PRN Q6HRS PRN PO MILD PAIN / TEMP > 100.3'F 08/10/21 12:45 08/15/21 06:10 Multi-Ingredient Ointment (Analgesic [place]) 1 prema PRN QID PRN TP MUSCLE PAIN 08/10/21 12:45 Al Hydroxide/Mg Hydroxide (Mylanta Plus Xs) 15 ml PRN AFTMEALHC PRN PO DYSPEPSIA 08/10/21 12:45 Magnesium Hydroxide (Milk Of Magnesia) 2,400 mg PRN QHS PRN PO CONSTIPATION 08/10/21 12:45 Amitriptyline HCl (Elavil) 50 mg HS PO 08/10/21 21:00 08/19/21 20:32 Vitamin D (Vitamin D3) 1,000 unit DAILY PO 08/11/21 09:00 08/19/21 08:30 Denosumab (Prolia) 60 mg 1X SQ 08/24/21 09:00 Duloxetine HCl (Cymbalta) 60 mg DAILY PO 08/11/21 09:00 08/19/21 08:31 Famotidine (Pepcid) 20 mg DAILY PO 08/11/21 09:00 08/19/21 08:31 Ketoconazole (Nizoral 2% Topical) 1 prema DAILY TP 08/11/21 09:00 08/19/21 08:31 Oxycodone/ Acetaminophen (Percocet 5/325) 1 tab PRN Q6HRS PRN PO MOD-SEV PAIN 08/10/21 17:00 08/16/21 19:36 Prednisone (Prednisone) 5 mg DAILY PO 08/11/21 09:00 08/19/21 08:30 Quetiapine Fumarate (SEROquel) 25 mg DAILY PO 08/11/21 09:00 08/19/21 08:31 Quetiapine Fumarate (SEROquel) 50 mg QHS PO 08/10/21 21:00 08/11/21 17:56 DC 08/10/21 20:59 Zolpidem Tartrate (Ambien) 5 mg PRN QHS PRN PO INSOMNIA 08/10/21 17:00 08/16/21 19:35 Non-Formulary Medication (Abatacept (Orencia)) 125 mg WEEKLY SQ 08/12/21 09:00 08/19/21 08:32 Galantamine Hydrobromide (Razadyne) 12 mg BIDAFTMEAL PO 08/10/21 18:00 08/15/21 17:05 DC 08/15/21 08:26 Leflunomide (Leflunomide) 20 mg DAILY PO 08/11/21 09:00 08/19/21 08:31 Memantine (Namenda) 10 mg BID PO 08/11/21 09:00 08/15/21 17:05 DC 08/15/21 08:25 Pregabalin (Lyrica) 150 mg TID PO 08/10/21 21:00 08/19/21 20:32 Non-Formulary Medication (Vibegron (Gemtesa)) 75 mg DAILY PO 08/11/21 09:00 Hold Vitamin B Complex (Vitamin B Complex) 1 cap DAILY PO 08/11/21 09:00 08/19/21 08:30 Calcium Carbonate/ Glycine (Tums) 500 mg DAILY PO 08/11/21 09:00 08/19/21 08:31 Ascorbic Acid (Vitamin C) 500 mg DAILY PO 08/11/21 09:00 08/19/21 08:31 Quetiapine Fumarate (SEROquel) 62.5 mg QHS PO 08/11/21 21:00 08/19/21 20:33 Bupropion HCl (Wellbutrin Xl) 150 mg DAILY PO 08/17/21 09:00 08/19/21 08:30 Lactic Acid (Lac-Hydrin) 1 prema BID TP 08/17/21 21:00 08/19/21 20:33 I have reviewed the current psychotropics carefully including drug interactions. Risk benefit ratio favors no change other than as noted in my dictated progress note. Diagnosis: Problems: (1) Impulse control disorder, unspecified (2) Anxiety disorder, unspecified (3) Dementia, vascular, with depression (4) Dementia, vascular, with delusions (5) Dementia in Alzheimer's disease with depression (6) Dementia in Alzheimer's disease with delusions (7) Major neurocognitive disorder (8) Dementia in Alzheimer's disease with early onset with behavioral disturbance MEL DONOVAN MD Aug 19, 2021 22:04
[2021-08-20 06:56] VITALS: BP 120/69
[2021-08-20] MEDS: PREGABALIN 75 MG CAPSULE PO SCH ×2 (07:46→14:29)
[2021-08-20] MEDS: CHOLECALCIFEROL (VITAMIN D3) 1,000 UNIT TABLET PO SCH (07:46)
[2021-08-20] MEDS: CALCIUM CARBONATE 500 MG TAB.CHEW PO SCH (07:46)
[2021-08-20] MEDS: buPROPion XL 150 MG TAB.ER.24H PO SCH (07:46)
[2021-08-20] MEDS: DULoxetine HCL 60 MG CAPSULE.DR PO SCH (07:46)
[2021-08-20] MEDS: LEFLUNOMIDE 10 MG TABLET PO SCH (07:47)
[2021-08-20] MEDS: predniSONE 5 MG TABLET PO SCH (07:47)
[2021-08-20] MEDS: FAMOTIDINE 20 MG TABLET PO SCH (07:47)
[2021-08-20] MEDS: ASCORBIC ACID 500 MG TABLET PO SCH (07:47)
[2021-08-20] MEDS: VITAMIN B COMPLEX CAPSULE. PO SCH (07:47)
[2021-08-20] MEDS: QUEtiapine 25 MG TABLET. PO SCH (07:47)
--- NOTE | 2021-08-20 08:29 | PDOC ---
Exam Note: Angelo Note: This note is a late entry for 08/18/2021 covers elements not covered in my initial note. Subjective: The patient was seen individually on 08/18/2021, discussed and reviewed the chart with Fito DIEHL. The patient slept 5 hours previous night. She has been calm, cooperative, confused, somewhat social previous evening better with transfers. I met with her in the dayroom. Review of Systems: Ambulation impaired, in wheelchair. No CV, , pulmonary, eye, ENT system symptoms on review. Reliability poor. Mental Status Exam: She is oriented to herself. Insight and judgment, recent and remote memory, attention and concentration, fund of knowledge is poor consistent with her diagnoses. Laboratory Data: Reviewed. Impression: Major neurocognitive disorder, Alzheimer, vascular with delusion, depression, behavioral disturbance. Anxiety disorder unspecified. Impulse control disorder unspecified. Plan: Maintain rest of the psychotropics unchanged. Reviewed drug interactions, risk-benefit ratio. Assessment: Vital Signs/I&O: Vital Signs Date Time Temp Pulse Resp B/P (MAP) Pulse Ox O2 Delivery O2 Flow Rate FiO2 08/20/21 06:56 98.4 108 20 120/69 (86) 92 Room Air 08/16/21 20:05 2.0 I & O 08/19/21 08/19/21 08/20/21 15:00 23:00 07:00 Intake Total 440 ml 260 ml Balance 440 ml 260 ml Labs: Laboratory Tests Test 08/19/21 09:57 White Blood Count 6.9 x10^3/uL (4.0-11.0) Red Blood Count 3.85 x10^6/uL (3.50-5.40) Hemoglobin 11.0 g/dL (12.0-15.5) L Hematocrit 35.1 % (36.0-47.0) L Mean Corpuscular Volume 91 fL (79-100) Mean Corpuscular Hemoglobin 29 pg (25-35) Mean Corpuscular Hemoglobin Concent 31 g/dL (31-37) Red Cell Distribution Width 18.1 % (11.5-14.5) H Platelet Count 247 x10^3/uL (140-400) Neutrophils (%) (Auto) 58 % (31-73) Lymphocytes (%) (Auto) 16 % (24-48) L Monocytes (%) (Auto) 14 % (0-9) H Eosinophils (%) (Auto) 12 % (0-3) H Basophils (%) (Auto) 1 % (0-3) Neutrophils # (Auto) 4.0 x10^3uL (1.8-7.7) Lymphocytes # (Auto) 1.1 x10^3/uL (1.0-4.8) Monocytes # (Auto) 1.0 x10^3/uL (0.0-1.1) Eosinophils # (Auto) 0.8 x10^3/uL (0.0-0.7) H Basophils # (Auto) 0.0 x10^3/uL (0.0-0.2) Sodium Level 145 mmol/L (136-145) Potassium Level 3.0 mmol/L (3.5-5.1) L Chloride Level 104 mmol/L (98-107) Carbon Dioxide Level 30 mmol/L (21-32) Anion Gap 11 (6-14) Blood Urea Nitrogen 13 mg/dL (7-20) Creatinine 0.8 mg/dL (0.6-1.0) Estimated GFR (Cockcroft-Gault) 70.5 BUN/Creatinine Ratio 16 (6-20) Glucose Level 134 mg/dL (70-99) H Calcium Level 9.3 mg/dL (8.5-10.1) Total Bilirubin 0.4 mg/dL (0.2-1.0) Aspartate Amino Transferase (AST) 30 U/L (15-37) Alanine Aminotransferase (ALT) 32 U/L (14-59) Alkaline Phosphatase 116 U/L (46-116) Total Protein 6.4 g/dL (6.4-8.2) Albumin 2.5 g/dL (3.4-5.0) L Albumin/Globulin Ratio 0.6 (1.0-1.7) L Current Medications: I have reviewed the current psychotropics carefully including drug interactions. Risk benefit ratio favors no change other than as noted in my dictated progress note. Diagnosis: Problems: (1) Impulse control disorder, unspecified (2) Anxiety disorder, unspecified (3) Dementia, vascular, with depression (4) Dementia, vascular, with delusions (5) Dementia in Alzheimer's disease with depression (6) Dementia in Alzheimer's disease with delusions (7) Major neurocognitive disorder (8) Dementia in Alzheimer's disease with early onset with behavioral disturbance MEL DONOVAN MD Aug 20, 2021 08:29
[2021-08-20] MEDS: KETOCONAZOLE 2% TOPICAL CREAM 30GM TUBE. TP SCH (09:00)
[2021-08-20] MEDS: AMMONIUM LACTATE 12% TOPICAL LOTION 226GM BOTTLE. TP SCH (09:00)
[2021-08-20 15:55] VITALS: BP 122/70
[2021-08-20 19:59] LABS: BASO % 1 % (0-3); EOS # 0.4 x10^3/uL (0.0-0.7); EOS % 4 % (0-3); HEMATOCRIT 37.7 % (36.0-47.0); HEMOGLOBIN 11.8 g/dL (12.0-15.5); LYMPH % 11 % (24-48); MEAN CORPUSCULAR HEMOGLOBIN 29 pg (25-35); MEAN CORPUSCULAR HGB CONC 31 g/dL (31-37); MEAN CORPUSCULAR VOLUME 93 fL (79-100); MONO # 0.4 x10^3/uL (0.0-1.1); MONO % 5 % (0-9); NEUT # 7.8 x10^3uL (1.8-7.7); NEUT % 81 % (31-73); PLATELET COUNT 252 x10^3/uL (140-400); RED BLOOD COUNT 4.06 x10^6/uL (3.50-5.40); RED CELL DISTRIBUTION WIDTH 18.1 % (11.5-14.5); WHITE BLOOD COUNT 9.6 x10^3/uL (4.0-11.0)
[2021-08-20 20:03] LABS: CALCIUM 9.4 mg/dL (8.5-10.1); GFR 54.5; POTASSIUM 3.4 mmol/L (3.5-5.1)
[2021-08-20 20:08] LABS: ALBUMIN 2.4 g/dL (3.4-5.0); ALBUMIN/GLOBULIN RATIO 0.6 (1.0-1.7); TOTAL BILIRUBIN 0.6 mg/dL (0.2-1.0); TOTAL PROTEIN 6.4 g/dL (6.4-8.2)
[2021-08-20] MEDS ORDERED: ACETAMINOPHEN 650 MG SUPP.RECT. PR ONE (20:30)
[2021-08-20] MEDS ORDERED: POTASSIUM CHLORIDE 20 MEQ TABLET.ER. PO SCH (21:00)
--- NOTE | 2021-08-20 21:07 | RAD ---
Exam: Chest one view INDICATION: Short of air TECHNIQUE: Frontal view of the chest Comparisons: 08/14/2021 FINDINGS: The cardiomediastinal silhouette and pulmonary vessels are within normal limits. Patchy bibasilar airspace disease. No pleural effusion. IMPRESSION: Patchy bibasilar airspace disease may be infectious or inflammatory in etiology. Electronically signed by: Du Del Rio MD (08/20/2021 9:04 PM) ROLF
--- NOTE | 2021-08-20 22:04 | PDOC ---
Exam Note: Angelo Note: Please also refer to the separate dictated note~for this date of service dictated separately.~Patient seen individually. Discussed the patient with Nursing staff reviewed the chart.~Reviewed interim history and current functioning. Reviewed vital signs,~Labs/ Radiology~and current medications noted below. Continue current treatment with the changes noted in the dictated addendum note Assessment: Vital Signs/I&O: Vital Signs Date Time Temp Pulse Resp B/P (MAP) Pulse Ox O2 Delivery O2 Flow Rate FiO2 08/20/21 15:55 98.0 76 20 122/70 (87) 99 08/20/21 06:56 Room Air 08/16/21 20:05 2.0 I & O 08/19/21 08/19/21 08/20/21 15:00 23:00 07:00 Intake Total 440 ml 260 ml Balance 440 ml 260 ml Labs: Laboratory Tests Test 08/20/21 07:40 White Blood Count 9.6 x10^3/uL (4.0-11.0) Red Blood Count 4.06 x10^6/uL (3.50-5.40) Hemoglobin 11.8 g/dL (12.0-15.5) L Hematocrit 37.7 % (36.0-47.0) Mean Corpuscular Volume 93 fL (79-100) Mean Corpuscular Hemoglobin 29 pg (25-35) Mean Corpuscular Hemoglobin Concent 31 g/dL (31-37) Red Cell Distribution Width 18.1 % (11.5-14.5) H Platelet Count 252 x10^3/uL (140-400) Neutrophils (%) (Auto) 81 % (31-73) H Lymphocytes (%) (Auto) 11 % (24-48) L Monocytes (%) (Auto) 5 % (0-9) Eosinophils (%) (Auto) 4 % (0-3) H Basophils (%) (Auto) 1 % (0-3) Neutrophils # (Auto) 7.8 x10^3uL (1.8-7.7) H Lymphocytes # (Auto) 1.0 x10^3/uL (1.0-4.8) Monocytes # (Auto) 0.4 x10^3/uL (0.0-1.1) Eosinophils # (Auto) 0.4 x10^3/uL (0.0-0.7) Basophils # (Auto) 0.0 x10^3/uL (0.0-0.2) Sodium Level 147 mmol/L (136-145) H Potassium Level 3.4 mmol/L (3.5-5.1) L Chloride Level 108 mmol/L (98-107) H Carbon Dioxide Level 28 mmol/L (21-32) Anion Gap 11 (6-14) Blood Urea Nitrogen 10 mg/dL (7-20) Creatinine 1.0 mg/dL (0.6-1.0) Estimated GFR (Cockcroft-Gault) 54.5 BUN/Creatinine Ratio 10 (6-20) Glucose Level 112 mg/dL (70-99) H Lactic Acid Level 2.4 mmol/L (0.4-2.0) H Calcium Level 9.4 mg/dL (8.5-10.1) Total Bilirubin 0.6 mg/dL (0.2-1.0) Aspartate Amino Transferase (AST) 43 U/L (15-37) H Alanine Aminotransferase (ALT) 31 U/L (14-59) Alkaline Phosphatase 127 U/L (46-116) H Total Protein 6.4 g/dL (6.4-8.2) Albumin 2.4 g/dL (3.4-5.0) L Albumin/Globulin Ratio 0.6 (1.0-1.7) L Current Medications: Meds: Laboratory Tests Test 08/20/21 07:40 White Blood Count 9.6 x10^3/uL Red Blood Count 4.06 x10^6/uL Hemoglobin 11.8 g/dL Hematocrit 37.7 % Mean Corpuscular Volume 93 fL Mean Corpuscular Hemoglobin 29 pg Mean Corpuscular Hemoglobin Concent 31 g/dL Red Cell Distribution Width 18.1 % Platelet Count 252 x10^3/uL Neutrophils (%) (Auto) 81 % Lymphocytes (%) (Auto) 11 % Monocytes (%) (Auto) 5 % Eosinophils (%) (Auto) 4 % Basophils (%) (Auto) 1 % Neutrophils # (Auto) 7.8 x10^3uL Lymphocytes # (Auto) 1.0 x10^3/uL Monocytes # (Auto) 0.4 x10^3/uL Eosinophils # (Auto) 0.4 x10^3/uL Basophils # (Auto) 0.0 x10^3/uL Sodium Level 147 mmol/L Potassium Level 3.4 mmol/L Chloride Level 108 mmol/L Carbon Dioxide Level 28 mmol/L Anion Gap 11 Blood Urea Nitrogen 10 mg/dL Creatinine 1.0 mg/dL Estimated GFR (Cockcroft-Gault) 54.5 BUN/Creatinine Ratio 10 Glucose Level 112 mg/dL Lactic Acid Level 2.4 mmol/L Calcium Level 9.4 mg/dL Total Bilirubin 0.6 mg/dL Aspartate Amino Transf (AST/SGOT) 43 U/L Alanine Aminotransferase (ALT/SGPT) 31 U/L Alkaline Phosphatase 127 U/L Total Protein 6.4 g/dL Albumin 2.4 g/dL Albumin/Globulin Ratio 0.6 Current Medications Medications (Trade) Dose Ordered Sig/Dorinda Route PRN Reason Start Time Stop Time Status Last Admin Dose Admin Acetaminophen (Tylenol) 650 mg PRN Q6HRS PRN PO MILD PAIN / TEMP > 100.3'F 08/10/21 12:45 08/15/21 06:10 Multi-Ingredient Ointment (Analgesic [place]) 1 prema PRN QID PRN TP MUSCLE PAIN 08/10/21 12:45 Al Hydroxide/Mg Hydroxide (Mylanta Plus Xs) 15 ml PRN AFTMEALHC PRN PO DYSPEPSIA 08/10/21 12:45 Magnesium Hydroxide (Milk Of Magnesia) 2,400 mg PRN QHS PRN PO CONSTIPATION 08/10/21 12:45 Amitriptyline HCl (Elavil) 50 mg HS PO 08/10/21 21:00 08/19/21 20:32 Vitamin D (Vitamin D3) 1,000 unit DAILY PO 08/11/21 09:00 08/20/21 07:46 Denosumab (Prolia) 60 mg 1X SQ 08/24/21 09:00 Duloxetine HCl (Cymbalta) 60 mg DAILY PO 08/11/21 09:00 08/20/21 07:46 Famotidine (Pepcid) 20 mg DAILY PO 08/11/21 09:00 08/20/21 07:47 Ketoconazole (Nizoral 2% Topical) 1 prema DAILY TP 08/11/21 09:00 08/20/21 09:00 Oxycodone/ Acetaminophen (Percocet 5/325) 1 tab PRN Q6HRS PRN PO MOD-SEV PAIN 08/10/21 17:00 08/16/21 19:36 Prednisone (Prednisone) 5 mg DAILY PO 08/11/21 09:00 08/20/21 07:47 Quetiapine Fumarate (SEROquel) 25 mg DAILY PO 08/11/21 09:00 08/20/21 07:47 Quetiapine Fumarate (SEROquel) 50 mg QHS PO 08/10/21 21:00 08/11/21 17:56 DC 08/10/21 20:59 Zolpidem Tartrate (Ambien) 5 mg PRN QHS PRN PO INSOMNIA 08/10/21 17:00 08/16/21 19:35 Non-Formulary Medication (Abatacept (Orencia)) 125 mg WEEKLY SQ 08/12/21 09:00 08/19/21 08:32 Galantamine Hydrobromide (Razadyne) 12 mg BIDAFTMEAL PO 08/10/21 18:00 08/15/21 17:05 DC 08/15/21 08:26 Leflunomide (Leflunomide) 20 mg DAILY PO 08/11/21 09:00 08/20/21 07:47 Memantine (Namenda) 10 mg BID PO 08/11/21 09:00 08/15/21 17:05 DC 08/15/21 08:25 Pregabalin (Lyrica) 150 mg TID PO 08/10/21 21:00 08/20/21 14:29 Non-Formulary Medication (Vibegron (Gemtesa)) 75 mg DAILY PO 08/11/21 09:00 Hold Vitamin B Complex (Vitamin B Complex) 1 cap DAILY PO 08/11/21 09:00 08/20/21 07:47 Calcium Carbonate/ Glycine (Tums) 500 mg DAILY PO 08/11/21 09:00 08/20/21 07:46 Ascorbic Acid (Vitamin C) 500 mg DAILY PO 08/11/21 09:00 08/20/21 07:47 Quetiapine Fumarate (SEROquel) 62.5 mg QHS PO 08/11/21 21:00 08/19/21 20:33 Bupropion HCl (Wellbutrin Xl) 150 mg DAILY PO 08/17/21 09:00 08/20/21 07:46 Lactic Acid (Lac-Hydrin) 1 prema BID TP 08/17/21 21:00 08/20/21 09:00 Potassium Chloride (Klor-Con) 20 meq BID PO 08/20/21 21:00 Acetaminophen (Tylenol Supp) 650 mg 1X ONCE [place] 08/20/21 20:30 08/20/21 20:39 DC 08/20/21 20:54 Current Medications Medications (Trade) Dose Ordered Sig/Dorinda Route PRN Reason Start Time Stop Time Status Last Admin Dose Admin Acetaminophen (Tylenol Supp) 650 mg 1X ONCE [place] 08/20/21 20:30 08/20/21 20:39 DC 08/20/21 20:54 I have reviewed the current psychotropics carefully including drug interactions. Risk benefit ratio favors no change other than as noted in my dictated progress note. Diagnosis: Problems: (1) Impulse control disorder, unspecified (2) Anxiety disorder, unspecified (3) Dementia, vascular, with depression (4) Dementia, vascular, with delusions (5) Dementia in Alzheimer's disease with depression (6) Dementia in Alzheimer's disease with delusions (7) Major neurocognitive disorder (8) Dementia in Alzheimer's disease with early onset with behavioral disturbance MEL DONOVAN MD Aug 20, 2021 22:04
[2021-08-20] MEDS ORDERED: BUPR150T21 PO (22:33)
[2021-08-20] MEDS ORDERED: ACET325T21 PO (22:42)
[2021-08-20] MEDS ORDERED: AMMO385C5 TP (22:43)
[2021-08-20] MEDS ORDERED: ASCO500C PO (22:44)
[2021-08-20] MEDS ORDERED: CALC500O PO (22:45)
[2021-08-20] MEDS ORDERED: MAG-124 PO (22:46)
[2021-08-20] MEDS ORDERED: MAGN24003 PO (22:47)
[2021-08-20] MEDS ORDERED: MENT1ADH29 TP (22:48)
[2021-08-20] MEDS ORDERED: POTA-163 PO (22:49)
--- NOTE | 2021-08-21 08:39 | PDOC ---
Exam Note: Angelo Note: This note is a late entry for 08/19/2021 covers elements not covered in my initial note. Subjective: The patient was seen individually on 08/19/2021, discussed and reviewed the chart with Daylin DIEHL. The patient slept 6 hours previous night. She has been somewhat irritable at night. Potassium was low and is being supplemented. She was little more coherent in the evening with poor appetite. Review of Systems: Ambulation impaired, in wheelchair. No CV, , pulmonary, eye, ENT system symptoms on review. Reliability poor. Mental Status Exam: She is oriented to herself. Insight and judgment, recent and remote memory, attention and concentration, fund of knowledge is poor consistent with her diagnoses. Laboratory Data: Reviewed. Impression: Major neurocognitive disorder, Alzheimer, vascular with delusion, depression, behavioral disturbance. Anxiety disorder unspecified. Impulse control disorder unspecified. Plan: Maintain rest of the psychotropics unchanged. Reviewed drug interactions, risk-benefit ratio. Assessment: Vital Signs/I&O: Vital Signs Date Time Temp Pulse Resp B/P (MAP) Pulse Ox O2 Delivery O2 Flow Rate FiO2 08/20/21 15:55 98.0 76 20 122/70 (87) 99 08/20/21 06:56 Room Air 08/16/21 20:05 2.0 I & O 08/20/21 08/20/21 08/21/21 15:00 23:00 07:00 Intake Total 0 ml Balance 0 ml Labs: Laboratory Tests Test 08/20/21 22:55 Lactic Acid Level 1.6 mmol/L (0.4-2.0) Current Medications: Meds: Current Medications Medications (Trade) Dose Ordered Sig/Dorinda Route PRN Reason Start Time Stop Time Status Last Admin Dose Admin Acetaminophen (Tylenol Supp) 650 mg 1X ONCE [place] 08/20/21 20:30 08/20/21 20:39 DC 08/20/21 20:54 I have reviewed the current psychotropics carefully including drug interactions. Risk benefit ratio favors no change other than as noted in my dictated progress note. Diagnosis: Problems: (1) Impulse control disorder, unspecified (2) Anxiety disorder, unspecified (3) Dementia, vascular, with depression (4) Dementia, vascular, with delusions (5) Dementia in Alzheimer's disease with depression (6) Dementia in Alzheimer's disease with delusions (7) Major neurocognitive disorder (8) Dementia in Alzheimer's disease with early onset with behavioral disturbance MEL DONOVAN MD Aug 21, 2021 08:39
--- NOTE | 2021-08-21 09:02 | PDOC ---
Exam Note: Angelo Note: This note is a late entry for 08/20/2021 covers elements not covered in my initial note. Subjective: The patient was seen individually on 08/20/2021, discussed and reviewed the chart with Daylin DIEHL. The patient slept 9-1/4 hours previous night. She has had a difficult day medically, she has been vomiting. She has been having low-grade fever, worsening confusion. Potassium is low and her oxygen was low and she was tachycardic. Nursing staff is following up with labs and we will consult with Dr. La for appropriate placement or transition to medical service. Review of Systems: Ambulation impaired, in wheelchair. No CV, , pulmonary, eye, ENT system symptoms on review. Reliability poor. Mental Status Exam: She is oriented to herself. Insight and judgment, recent and remote memory, attention and concentration, fund of knowledge is poor consistent with her diagnoses. Laboratory Data: Reviewed. Impression: Major neurocognitive disorder, Alzheimer, vascular with delusion, depression, behavioral disturbance. Anxiety disorder unspecified. Impulse control disorder unspecified. Plan: Maintain rest of the psychotropics unchanged. Reviewed drug interactions, risk-benefit ratio. Nursing staff is following up with labs and we will consult with Dr. La for appropriate placement or transition to medical service. Assessment: Vital Signs/I&O: Vital Signs Date Time Temp Pulse Resp B/P (MAP) Pulse Ox O2 Delivery O2 Flow Rate FiO2 08/20/21 15:55 98.0 76 20 122/70 (87) 99 08/20/21 06:56 Room Air 08/16/21 20:05 2.0 I & O 08/20/21 08/20/21 08/21/21 15:00 23:00 07:00 Intake Total 0 ml Balance 0 ml Labs: Laboratory Tests Test 08/20/21 22:55 Lactic Acid Level 1.6 mmol/L (0.4-2.0) Current Medications: Meds: Current Medications Medications (Trade) Dose Ordered Sig/Dorinda Route PRN Reason Start Time Stop Time Status Last Admin Dose Admin Acetaminophen (Tylenol Supp) 650 mg 1X ONCE [place] 08/20/21 20:30 08/20/21 20:39 DC 08/20/21 20:54 I have reviewed the current psychotropics carefully including drug interactions. Risk benefit ratio favors no change other than as noted in my dictated progress note. Diagnosis: Problems: (1) Impulse control disorder, unspecified (2) Anxiety disorder, unspecified (3) Dementia, vascular, with depression (4) Dementia, vascular, with delusions (5) Dementia in Alzheimer's disease with depression (6) Dementia in Alzheimer's disease with delusions (7) Major neurocognitive disorder (8) Dementia in Alzheimer's disease with early onset with behavioral disturbance MEL DONOVAN MD Aug 21, 2021 09:02
--- NOTE | 2021-08-21 22:03 | PDOC ---
Exam Note: Angelo Note: Please also refer to the separate dictated note~for this date of service dictated separately.~Patient seen individually. Discussed the patient with Nursing staff reviewed the chart.~Reviewed interim history and current functioning. Reviewed vital signs,~Labs/ Radiology~and current medications noted below. Continue current treatment with the changes noted in the dictated addendum note Assessment: Vital Signs/I&O: Vital Signs Date Time Temp Pulse Resp B/P (MAP) Pulse Ox O2 Delivery O2 Flow Rate FiO2 08/20/21 15:55 98.0 76 20 122/70 (87) 99 08/20/21 06:56 Room Air 08/16/21 20:05 2.0 I & O 08/20/21 08/20/21 08/21/21 15:00 23:00 07:00 Intake Total 0 ml Balance 0 ml Labs: Laboratory Tests Test 08/20/21 22:55 Lactic Acid Level 1.6 mmol/L (0.4-2.0) Current Medications: Meds: Laboratory Tests Test 08/20/21 22:55 Lactic Acid Level 1.6 mmol/L Current Medications Medications (Trade) Dose Ordered Sig/Dorinda Route PRN Reason Start Time Stop Time Status Last Admin Dose Admin Acetaminophen (Tylenol) 650 mg PRN Q6HRS PRN PO MILD PAIN / TEMP > 100.3'F 08/10/21 12:45 08/20/21 23:30 DC 08/15/21 06:10 Multi-Ingredient Ointment (Analgesic [place]) 1 prema PRN QID PRN TP MUSCLE PAIN 08/10/21 12:45 08/20/21 23:30 DC Al Hydroxide/Mg Hydroxide (Mylanta Plus Xs) 15 ml PRN AFTMEALHC PRN PO DYSPEPSIA 08/10/21 12:45 08/20/21 23:30 DC Magnesium Hydroxide (Milk Of Magnesia) 2,400 mg PRN QHS PRN PO CONSTIPATION 08/10/21 12:45 08/20/21 23:30 DC Amitriptyline HCl (Elavil) 50 mg HS PO 08/10/21 21:00 08/20/21 23:30 DC 08/19/21 20:32 Vitamin D (Vitamin D3) 1,000 unit DAILY PO 08/11/21 09:00 08/20/21 23:30 DC 08/20/21 07:46 Denosumab (Prolia) 60 mg 1X SQ 08/24/21 09:00 08/20/21 23:30 DC Duloxetine HCl (Cymbalta) 60 mg DAILY PO 08/11/21 09:00 08/20/21 23:30 DC 08/20/21 07:46 Famotidine (Pepcid) 20 mg DAILY PO 08/11/21 09:00 08/20/21 23:30 DC 08/20/21 07:47 Ketoconazole (Nizoral 2% Topical) 1 prema DAILY TP 08/11/21 09:00 08/20/21 23:30 DC 08/20/21 09:00 Oxycodone/ Acetaminophen (Percocet 5/325) 1 tab PRN Q6HRS PRN PO MOD-SEV PAIN 08/10/21 17:00 08/20/21 23:30 DC 08/16/21 19:36 Prednisone (Prednisone) 5 mg DAILY PO 08/11/21 09:00 08/20/21 23:30 DC 08/20/21 07:47 Quetiapine Fumarate (SEROquel) 25 mg DAILY PO 08/11/21 09:00 08/20/21 23:30 DC 08/20/21 07:47 Quetiapine Fumarate (SEROquel) 50 mg QHS PO 08/10/21 21:00 08/11/21 17:56 DC 08/10/21 20:59 Zolpidem Tartrate (Ambien) 5 mg PRN QHS PRN PO INSOMNIA 08/10/21 17:00 08/20/21 23:30 DC 08/16/21 19:35 Non-Formulary Medication (Abatacept (Orencia)) 125 mg WEEKLY SQ 08/12/21 09:00 08/20/21 23:30 DC 08/19/21 08:32 Galantamine Hydrobromide (Razadyne) 12 mg BIDAFTMEAL PO 08/10/21 18:00 08/15/21 17:05 DC 08/15/21 08:26 Leflunomide (Leflunomide) 20 mg DAILY PO 08/11/21 09:00 08/20/21 23:30 DC 08/20/21 07:47 Memantine (Namenda) 10 mg BID PO 08/11/21 09:00 08/15/21 17:05 DC 08/15/21 08:25 Pregabalin (Lyrica) 150 mg TID PO 08/10/21 21:00 08/20/21 23:30 DC 08/20/21 14:29 Non-Formulary Medication (Vibegron (Gemtesa)) 75 mg DAILY PO 08/11/21 09:00 08/20/21 23:30 DC Vitamin B Complex (Vitamin B Complex) 1 cap DAILY PO 08/11/21 09:00 08/20/21 23:30 DC 08/20/21 07:47 Calcium Carbonate/ Glycine (Tums) 500 mg DAILY PO 08/11/21 09:00 08/20/21 23:30 DC 08/20/21 07:46 Ascorbic Acid (Vitamin C) 500 mg DAILY PO 08/11/21 09:00 08/20/21 23:30 DC 08/20/21 07:47 Quetiapine Fumarate (SEROquel) 62.5 mg QHS PO 08/11/21 21:00 08/20/21 23:30 DC 08/19/21 20:33 Bupropion HCl (Wellbutrin Xl) 150 mg DAILY PO 08/17/21 09:00 08/20/21 23:30 DC 08/20/21 07:46 Lactic Acid (Lac-Hydrin) 1 prema BID TP 08/17/21 21:00 08/20/21 23:30 DC 08/20/21 09:00 Potassium Chloride (Klor-Con) 20 meq BID PO 08/20/21 21:00 08/20/21 23:30 DC Acetaminophen (Tylenol Supp) 650 mg 1X ONCE OR 08/20/21 20:30 08/20/21 20:39 DC 08/20/21 20:54 I have reviewed the current psychotropics carefully including drug interactions. Risk benefit ratio favors no change other than as noted in my dictated progress note. Diagnosis: Problems: (1) Impulse control disorder, unspecified (2) Anxiety disorder, unspecified (3) Dementia, vascular, with depression (4) Dementia, vascular, with delusions (5) Dementia in Alzheimer's disease with depression (6) Dementia in Alzheimer's disease with delusions (7) Major neurocognitive disorder (8) Dementia in Alzheimer's disease with early onset with behavioral disturbance MEL DONOVAN MD Aug 21, 2021 22:03
--- NOTE | 2021-08-21 22:21 | DS ---
DISCHARGE SUMMARY/PSYCHIATRIC PROGRESS VISIT This note covers elements not covered in my initial note, 08/10/2021. REASON FOR ADMISSION: Please refer to the admission history for details. Briefly, the patient is a 71-year-old female who lives at home with her spouse and is referred by her primary care physician on account of worsening confusion, combative towards family, believing her left her for another woman, paranoid, name calling, irritable, more confused. She had failed outpatient psychiatric interventions. SIGNIFICANT FINDINGS AND CLINICAL COURSE: Following admission, the patient was seen daily individually by myself from a psychiatric standpoint, medical followup, Dr. La/Dr. Macdonald. The patient remained withdrawn, isolative, not very verbally interactive, depressed with poor oral intake. She was irritable, labile at times. She seemed to be showing some improvement on a combination of amitriptyline 50 mg at bedtime, Cymbalta 60 mg a day as an antidepressant, Seroquel 25 mg a.m., 62.5 mg at bedtime, Ambien 5 mg at bedtime p.r.n. insomnia, Wellbutrin-XL 150 mg a day. However, at this stage, she was having vomiting, worsening confusion, fever, hypokalemia. O2 sats were low, and she is tachycardic. Dr. La transferred her to the medical-surgical floor for medical stabilization. REVIEW OF SYSTEMS: Prior to discharge, ambulation impaired. No CV, , pulmonary, eye, ENT system symptoms on review. Reliability poor. MENTAL STATUS EXAMINATION: Oriented to herself. Insight, judgment, recent and remote memory, attention, concentration, fund of knowledge poor, consistent with her diagnoses. FINAL DIAGNOSES: Major neurocognitive disorder, Alzheimer, vascular with delusion, depression, behavioral disturbance, anxiety disorder, unspecified; impulse control disorder, unspecified medically unstable as noted above with fever, vomiting, low oxygen saturations. Rest unchanged from admission. DISCHARGE MEDICATIONS: Please refer to the MRAD. Psychiatric and medical followup on . Time for discharge day management greater than 30 minutes. HALEIGH/LUIS ALBERTO DR: Mook TID: [id number]
[2021-08-22] MEDS ORDERED: ENOXAPARIN 30 MG/0.3 ML SYRINGE. SQ SCH (14:30)
--- NOTE | 2021-08-23 07:17 | PN ---
DATE: 08/22/2021 SUBJECTIVE: The patient is resting, slightly propped up in bed, somewhat tachypneic, very lethargic. She did have low-grade fever yesterday, although she is so far have been afebrile today. She does respond verbally, although she mumbles and sometimes difficult to understand. She is on a multitude of medications that make her very sedated. Her home medication included Seroquel 25 mg in the morning and 6.25 mg at bedtime. She is also on duloxetine 60 mg. She is on amitriptyline 50 mg. She is on pregabalin 150 three times a day. She is also on Ambien 5 mg at bedtime as well as oxycodone 5/325 every 6 hours. All of these are obviously capable of making her very sedated. The nursing staff stated that her appetite is very poor and she has eaten only 10% of her lunch today. According to the , she is more awake, alert, normal at home. She is even able to walk with a walker in his management. She has dramatically deteriorated over the last week. PHYSICAL EXAMINATION: GENERAL: When I saw her, she was definitely pale, but not jaundiced or cyanosed, no lymphadenopathy, no thyromegaly, no jugular venous distention. No limb edema. VITAL SIGNS: Her heart rate was 99, blood pressure is 114/64, temperature was 98.8, respiratory rate was 16 and oxygen saturation was 95% on 2 liters of oxygen. HEAD, EYES, EARS, NOSE, AND THROAT: Normocephalic, atraumatic. NECK: Supple. HEART: Showed normal first and second heart sounds. No gallop or murmur. CHEST: Shows central trachea, equal bilateral chest expansion, air entry, bilateral basal crepitation posteriorly. I could not appreciate any rhonchi. ABDOMEN: Distended, soft, nontender. NEUROLOGIC: She is very lethargic, but arousable. She has the tendency of lying on the left side and her head also turned to the left side. She is able to move her upper extremities to much good extent than lower extremities. Her intake and output are incompletely recorded. LABORATORY DATA: Showed a white cell count of 12.5, hemoglobin 9.8, hematocrit 32, MCV 92 and platelet count 243,000. Her chemistry showed serum sodium slightly down to 147, potassium 3.5, chloride 110, bicarbonate 28, anion gap of 9, BUN 9, creatinine 1, estimated GFR was 54 mL per minute. Her glucose 115, calcium was 7.8. Total bilirubin, AST, ALT, alkaline phosphatase slightly elevated. Total protein 4.8, albumin was 1.9. Her D-dimer was high at 2.67. Urinalysis was mostly unremarkable. ASSESSMENT AND PLAN: 1. This is a 71-year-old female patient who was transferred to [address] [place] [address] with fever, hypoxia, hypotension. She received a liter of normal saline, continued on normal saline. 2. She was diagnosed with bilateral lung infiltrate, likely due to healthcare-associated pneumonia versus aspiration pneumonia. 3. Her past medical history is significant for: A. Hypertension. B. Rheumatoid arthritis. C. Osteoarthritis. D. Fibromyalgia. E. Urinary tract infection. F. History of pulmonary embolism and deep vein thrombosis. G. Restless leg syndrome. H. overactive bladder. 4. The patient seems to be extremely lethargic, and she is on a multitude of medications that make her very sleepy including Ambien, Seroquel, pregabalin, duloxetine and amitriptyline. I would probably hold on all of these medications. I would continue with IV fluid and IV antibiotic. I will repeat all her lab work. I have spoken to her and explained all these findings. FRANCES/LUIS ALBERTO BEAVER: Varun TID: [id number]
[2021-08-24] MEDS ORDERED: DENOSUMAB 60 MG/ML DISP.SYRIN. SQ SCH (09:00)
== END 2021-08-20 22:59 | disposition short-term general hospital (02) | DRG 57 ==
LOC: GEROPSY 12:10
PROVIDERS: ADMIT Psychiatry & Neurology Psychiatry; ATTEND Psychiatry & Neurology Psychiatry
PROC: 5A09357 Assistance with Respiratory Ventilation, Less than 24 Consecutive Hours, Continuous Positive Airway Pressure (ICD-10-PCS; principal; 2021-08-16)
DX: G30.9 Alzheimer's disease, unspecified (principal); F01.51 Vascular dementia, unspecified severity, with behavioral disturbance; F02.81 Dementia in other diseases classified elsewhere, unspecified severity, with behavioral disturbance; J98.11 Atelectasis; N39.0 Urinary tract infection, site not specified; Z20.822 Contact with and (suspected) exposure to COVID-19; F32.A Depression, unspecified; F41.9 Anxiety disorder, unspecified; F63.9 Impulse disorder, unspecified; G25.81 Restless legs syndrome; I10 Essential (primary) hypertension; M06.9 Rheumatoid arthritis, unspecified; M19.90 Unspecified osteoarthritis, unspecified site; M79.7 Fibromyalgia; N32.81 Overactive bladder; E87.6 Hypokalemia; Z66 Do not resuscitate; Z96.659 Presence of unspecified artificial knee joint; R09.02 Hypoxemia; Z79.899 Other long term (current) drug therapy; Z86.711 Personal history of pulmonary embolism; Z86.718 Personal history of other venous thrombosis and embolism; I95.9 Hypotension, unspecified; Z88.1 Allergy status to other antibiotic agents; Z88.8 Allergy status to other drugs, medicaments and biological substances
CPT/HCPCS: 36415; 70450; 71045; 80053; 80061; 81001; 82306; 83036; 83540; 83550; 83605; 83735; 84436; 84443; 84480; 85025; 85379; 86592; 87040; 87086; 93005; J7512; U0003; 97535

== ENCOUNTER 2021-08-24 11:22 | Inpatient (IN) | payer MEDICARE, OTHER ==
[~2021-08-24] VITALS: Ht 160 cm; Wt 73.5 kg
[~2021-08-24 11:22] MED LIST: ABAT125S SQ; ACET325T21 PO; AMIT50TA PO; AMMO385C5 TP; ASCO500C PO; BUPR150T21 PO; CALC500O PO; CALCIUM; CHOL10004 PO; DENO60DI SQ; DULO60CA7 PO; FAMO-63 PO; GALA12TA15 PO; KETO15CR2 TP; LEFL20TA PO; MAG-124 PO; MAGN24003 PO; MEMA28CA PO; MENT1ADH29 TP; OXYC1TAB15 PO; POTA-163 PO; PRED-220 PO; PREG150C PO; QUET25TA5 PO; VIBE75TA PO; VITA1CAP5 PO; ZOLP5TAB PO
[2021-08-24] MEDS ORDERED: MORPHINE SULFATE 30 MG/30 ML 30 ML IV PRN (11:45)
[2021-08-24] MEDS ORDERED: SCOPOLAMINE 1.5MG PATCH. TD SCH (12:00)
[2021-08-24 12:48] VITALS: BP 116/65
[2021-08-24] MEDS ORDERED: ATROPINE 1% OPHTH SOLUTION 5ML BOTTLE. SL PRN (13:00)
[2021-08-24] MEDS ORDERED: ACETAMINOPHEN 650 MG SUPP.RECT. PR PRN (13:00)
--- NOTE | 2021-08-25 02:30 | DS ---
DATE OF DISCHARGE: 08/24/2021 ATTENDING PHYSICIAN: Dr. Macdonald. FINAL DISCHARGE DIAGNOSES AND CAUSE OF : 1. Acute respiratory failure. 2. Aspiration pneumonia. 3. Profound dementia. 4. Rheumatoid arthritis. HISTORY AND PHYSICAL: The patient is a 71-year-old female from the [facility] behavioral unit. She has profound dementia. She was admitted to the medical floor because of respiratory failure and aspiration pneumonia. PHYSICAL EXAMINATION: Please see the dictated note. PERTINENT LABORATORY AND X-RAY STUDIES: On the database, her oxygen saturation became more increasingly diminished requiring more supplemental oxygen. COURSE IN THE HOSPITAL: The patient was treated with antibiotics. We discussed the outcome with the , he requested to go to hospice. Therefore, on the morning of 08/24, the patient discharged from the medical floor and sent to the hospitalist service. Morphine and Ativan were administered for comfort measures. The patient succumbed to her illness. Family is at the bedside. She was pronounced at 1740 hours in the afternoon of 08/24. Her family, , and children were at the bedside. JACKIE/DOMINIQUE/DEBORAH DR: Betsy TID: [id number] CC: CASANDRA ESPINOZA MD, MEL DONOVAN MD
== END 2021-08-24 17:55 | DRG 177 ==
LOC: 1 SOUTH 11:22
PROVIDERS: ADMIT Hospitalist; ATTEND Hospitalist
DX: J69.0 Pneumonitis due to inhalation of food and vomit (principal); J96.00 Acute respiratory failure, unspecified whether with hypoxia or hypercapnia; F03.90 Unspecified dementia, unspecified severity, without behavioral disturbance, psychotic disturbance, mood disturbance, and anxiety; M06.9 Rheumatoid arthritis, unspecified; Z88.8 Allergy status to other drugs, medicaments and biological substances
CPT/HCPCS: J2060; J2270; Q5005